=== PATIENT | male | born 1980 | race African-American/Black ===

== ENCOUNTER 2016-07-21 04:26 | Emergency (ER) | payer OTHER ==
[2016-07-21] MEDS ORDERED: CEFTRIAXONE INJ 250 MG VIAL IM ONE (05:37)
[2016-07-21] MEDS ORDERED: AZITHROMYCIN 250 MG TABLET PO ONE (05:37)
[2016-07-21] MEDS ORDERED: LIDOCAINE 1% INJ-PF (10 MG/ML) 30 ML SDV INFIL ONE (05:37)
--- NOTE | 2016-07-21 05:41 | ER Document Report ---
[id number] PAIN Notes: Patient is a 35-year-old male presents with complaint of penile discharges been worsening over last couple days. He was recent sexually active. He says he was wearing a condom but the condom broke. He is unsure if the sexual partner has no STD or not. He does not talk to or since. He denies any other complaints. No dysuria. No abdominal pain. No fevers. He does have a previous allergy to penicillin but says is just a rash. He has received an "antibiotic shot" in the past and did not have any reaction. He is unsure which antibiotic this was. TRAVEL OUTSIDE OF THE [place] IN LAST 30 DAYS: No - Related Data Allergies/Adverse Reactions: Penicillins Allergy (Unknown, Verified 07/21/16 04:36) Past Medical History - Social History Smoking Status: Unknown if Ever Smoked Chew tobacco use (# tins/day): No Frequency of alcohol use: None Drug Abuse: None Family History: Reviewed & Not Pertinent Patient has suicidal ideation: No Patient has homicidal ideation: No Pulmonary Medical History: Denies: Hx Asthma Renal/ Medical History: Denies: Hx Peritoneal Dialysis - Immunizations Hx Diphtheria, Pertussis, Tetanus Vaccination: Yes Review of Systems - Review of Systems Notes: My Normal Review Basic REVIEW OF SYSTEMS: CONSTITUTIONAL : Denies fever, chills, or sweats. Denies recent illness. GASTROINTESTINAL: Denies abdominal pain. Denies nausea, vomiting, or diarrhea. Denies constipation. Last BM: GENITOURINARY: Denies difficulty urinating, painful urination, burning, frequency, or blood in urine. Penile discharge MUSCULOSKELETAL: Denies neck or back pain or joint pain or swelling. SKIN: Denies rash or skin lesions. ALL OTHER SYSTEMS REVIEWED AND NEGATIVE. Physical Exam - Vital signs Vitals: Temp Pulse Resp BP Pulse Ox 97.4 F 60 16 113/71 100 07/21/16 04:30 07/21/16 04:30 07/21/16 04:30 07/21/16 04:30 07/21/16 04:30 - Notes Notes: General Appearance: Well nourished, alert, cooperative, no acute distress, no obvious discomfort. Well-appearing. Vitals: reviewed, See vital signs table. Genital: No redness or erythema to genitalia. No abnormal lesions. Patient does have a whitish discharge coming from the urethra. Skin: warm, dry, appropriate color, no rash Neuro: speech clear, oriented x 3, normal affect, responds appropriately to questions. Course - Vital Signs Vital signs: Temp Pulse Resp BP Pulse Ox 97.4 F 60 16 104/67 100 07/21/16 06:06 07/21/16 06:08 07/21/16 06:06 07/21/16 06:06 07/21/16 06:08 - Transfer of Care Notes: 07/21/16 06:23 Patient does have discharge concerning for sexually transmitted disease. Patient does want to go forth with treatment this time. He said he would contact his sexual partner to make sure that she is tested as well. I encouraged return to ER if has fevers, vomiting, or feels unwell. Patient was held for 20 minutes after receiving the Rocephin shots make sure he has no rash or itching. Patient agrees with plan will will be discharged home. Discharge - Discharge Clinical Impression: Penile discharge Condition: Good Disposition: HOME, SELF-CARE Additional Instructions: Please return to the ER immediately if you develop fevers, redness or swelling to your penis, or if you feel unwell. Please inform your sexual partner to be tested. Follow up with the health department for further STD testing such as HIV and Hepatitis. Forms: Return to Work
[2016-07-21 06:08] VITALS: BP 104/67
[2016-07-21 07:06] LABS: CHLAM PCR NOT DETECTED (NOT DETECT)
== END 2016-07-21 06:20 | disposition home or self-care (01) ==
LOC: ER 04:26
DX: R36.9 Urethral discharge, unspecified (principal)
CPT/HCPCS: 99284; 96372; 87491; 87591; J3490; J0696

== ENCOUNTER 2016-08-30 05:15 | Emergency (ER) | payer OTHER ==
--- NOTE | 2016-08-30 07:37 | ER Document Report ---
HPI - HPI Patient complains to provider of: vomiting and diarrhea Onset: Yesterday Onset/Duration: Gone Quality of pain: No pain Pain Level: Denies Context: Patient states that yesterday he had abdominal pain off and on with nausea, vomiting, and diarrhea. Patient states now that all of his symptoms have resolved but he does need a note for his job. Associated Symptoms: Diarrhea - Yesterday, Vomiting - Yesterday. denies: Fever Exacerbated by: Denies Relieved by: Denies Similar symptoms previously: Yes Recently seen / treated by doctor: No - ROS ROS below otherwise negative: Yes Systems Reviewed and Negative: Yes All other systems reviewed and negative - CONSTITUTIONAL Constitutional: DENIES: Fever - CARDIOVASCULAR Cardiovascular: DENIES: Chest pain - RESPIRATORY Respiratory: DENIES: Trouble Breathing, Coughing - GASTROINTESTINAL Gastrointestinal: REPORTS: Abdominal Pain - Yesterday, none today, Nausea - Yesterday, none today, Patient vomiting - Yesterday, none today, Diarrhea - Yesterday, none today - MUSCULOSKELETAL Musculoskeletal: DENIES: Extremity pain, Back Pain, Neck Pain - DERM Skin Color: Normal, [place] Skin Problems: None Past Medical History - General Information source: Patient - Social History Smoking Status: Never Smoker Frequency of alcohol use: None Drug Abuse: None 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 IN LAST 30 DAYS: No - HEENT HEENT: Atraumatic, Normal ENT Exam, Normocephalic - NECK Neck: Normal Inspection, Supple - RESPIRATORY Respiratory: Breath Sounds Normal, No Respiratory Distress O2 Sat by Pulse Oximetry: 100 - CARDIOVASCULAR Cardiovascular: Regular Rate, Regular Rhythm, No Murmur - GI/ABDOMEN Gastrointestinal: Abdomen Soft, Abdomen Non-Tender, No Organomegaly - BACK Back: Normal Inspection. negative: CVA Tenderness-Right, CVA Tenderness-Left - MUSCULOSKELETAL/EXTREMETIES Musculoskeletal/Extremeties: SHAYNA JENSEN - NEURO Level of Consciousness: Awake, Alert, Appropriate Motor/Sensory: No Motor Deficit, No Sensory Deficit - DERM Integumentary: Warm, Dry, No Rash Course - Vital Signs Vital signs: Temp Pulse Resp BP Pulse Ox 97.5 F 67 18 110/76 100 08/30/16 05:18 08/30/16 05:18 08/30/16 05:36 08/30/16 05:18 08/30/16 05:18 Discharge - Discharge Clinical Impression: Vomiting and diarrhea, Resolved abdominal pain Condition: Stable Disposition: HOME, SELF-CARE Additional Instructions: Return immediately for any new or worsening symptoms Followup with your primary care provider, call tomorrow to make a followup appointment VOMITING: Vomiting (or nausea without vomiting) can be caused by many other different problems. It can mean that something's wrong with the stomach, such as ulcers or inflammation or the intestinal tract, such as appendicitis. But it can also be a symptom of a problem that has nothing to do with the stomach or intestines. Vomiting is common with severe headaches, earaches, tonsillitis, and kidney infections, etc. We see it with pneumonia or heart attacks. Drugs can cause nausea and vomiting. Many abdominal problems cause vomiting; for example, gallstones, kidney stones, pancreatitis, and intestinal obstruction ( blocked bowels). In most cases, curing the vomiting depends on fixing the problem that caused it. For temporary relief, we may use an anti-nausea medicine. For home use, we can prescribe suppositories, chewable pills, pills that dissolve in the mouth, or liquid anti-nausea drugs. If the vomiting seems to be caused by a problem in the stomach, acid-suppressing drugs may be prescribed as well. It's important to avoid dehydration. Sip small amounts of clear liquids ( soft drinks, tea, broth, etc) . Try to take fluids frequently even if you are vomiting to prevent dehydration. Take increasing amounts of fluid and when liquids are being consumed successfully, advance to small amounts of bland food (toast, soups, mashed potatoes, etc.) until you are able to resume a regular diet. Avoid aspirin, tobacco, and alcohol. If the vomiting worsens, if the problem that's making you vomit worsens, or if there's evidence of bleeding in the stomach (such as black, tarry stool, or bloody or black vomit), you should return immediately. Also, return if abdominal pain worsens or becomes localized to one area or you develop high fever. Call your doctor if you aren't improved in 24 hours. DIARRHEA, NON-SPECIFIC: Diarrhea means frequent, watery stools. There are many causes. Any problem that keeps the intestinal tract from absorbing water from the stool can lead to diarrhea. A sudden new diarrhea problem is usually caused by a virus, food sensitivity, toxic bacteria, or drugs. In this case, we expect the problem to go away soon. Testing is done only if you seem seriously ill from the diarrhea. If you have chronic diarrhea, or diarrhea that keeps coming back, we need to find out why. Chronic diarrhea can be due to inflammation of the bowels such as Crohn's disease or ulcerative colitis, food sensitivity such as intolerance to lactose or wheat protein, irritable bowel syndrome, and other problems. If your diarrhea is a significant problem but it's not clear why you have it, we' ll refer you to a specialist for further testing. During an episode of diarrhea, drink small amounts (two to six ounces) of clear liquids (soft drinks, sport drinks, herb teas, broth, etc). Take fluids frequently to prevent dehydration. It's usually not a problem to take mild anti- diarrhea medication such as Kaopectate or Pepto-Bismol. As the diarrhea eases, advance to small amounts of bland food (mashed potato, toast) for 24 hours. Call the physician if blood appears in your vomit or stool, if vomiting lasts longer than 24 hours, if the abdominal pain worsens or becomes localized to one area, if you develop high fever, or if you become lightheaded and weak. VIRAL SYNDROME: The physician has diagnosed a viral infection. Viruses not only cause "colds," but can cause many different symptoms including generalized aching, fever, headache, cough, diarrhea, nausea, vomiting, and fatigue. The treatment, for the most part, is simply relief of symptoms. This means that antibiotics are usually not given. Rest, fluids, pain medications and, occasionally, medication for the specific symptoms that are most bothersome will be prescribed. Use good handwashing to avoid passing the virus to others. Shared toys should be cleaned with disinfectant. Clean the toilets, sinks, and counter surfaces in bathrooms. Launder clothing in hot water. Contact the physician if you develop any new or unusual symptoms such as severe headache, stiff neck, high fever, chest pain, productive cough, or shortness of breath. You should be rechecked if you don't see marked improvement within seven to 10 days. FOLLOW-UP CARE: If you have been referred to a physician for follow-up care, call the physician s office for an appointment as you were instructed or within the next two days. If you experience worsening or a significant change in your symptoms, notify the physician immediately or return to the Emergency Department at any time for re-evaluation. Forms: Return to Work Referrals: [facility] [Provider Group] - Follow up as needed [facility] [Provider Group] - Follow up as needed
[2016-08-30 07:57] VITALS: BP 116/73
== END 2016-08-30 07:50 | disposition home or self-care (01) ==
LOC: ER 05:15
DX: R11.10 Vomiting, unspecified (principal); R19.7 Diarrhea, unspecified; R10.9 Unspecified abdominal pain
CPT/HCPCS: 99283

== ENCOUNTER 2016-09-02 08:13 | Emergency (ER) | payer OTHER ==
[2016-09-02] MEDS ORDERED: ONDANSETRON 4 MG TAB.RAPDIS PO ONE (10:11)
[2016-09-02] MEDS ORDERED: IBUPROFEN 600 MG TABLET PO ONE (10:11)
--- NOTE | 2016-09-02 10:17 | ER Document Report ---
ED Flu Like - General Chief Complaint: Flu Symptoms Stated Complaint: FLU LIKE SYMPTOMS Mode of Arrival: Ambulatory Information source: Patient Notes: This is a 35-year-old male with no previous past medical history who presents with flulike symptoms for the past 4 days. He states that he has had cough, chills, subjective fevers, body aches, and nausea and vomiting. He states that he was seen here 4 days ago and diagnosed with a stomach virus. He last vomited this morning at work and was told to come to the ER for another evaluation. No diarrhea. He has not had Tylenol or Motrin today. Of note he states that his girlfriend has tested positive for influenza. TRAVEL OUTSIDE OF THE [place] IN LAST 30 DAYS: No - Related Data Allergies/Adverse Reactions: Penicillins Allergy (Unknown, Verified 09/02/16 08:20) Past Medical History - General Information source: Patient - Social History Smoking Status: Never Smoker Chew tobacco use (# tins/day): No Frequency of alcohol use: None Drug Abuse: None Family History: Reviewed & Not Pertinent Patient has suicidal ideation: No Patient has homicidal ideation: No - Medical History Medical History: Negative Pulmonary Medical History: Denies: Hx Asthma Renal/ Medical History: Denies: Hx Peritoneal Dialysis - Immunizations Hx Diphtheria, Pertussis, Tetanus Vaccination: Yes Review of Systems - Review of Systems Constitutional: See HPI, Chills. denies: Fever EENT: Nose congestion. denies: Ear pain, Sinus pressure, Throat pain, Difficulty swallowing Cardiovascular: No symptoms reported. denies: Chest pain Respiratory: Cough. denies: Short of breath, Sputum Gastrointestinal: See HPI, Nausea, Vomiting. denies: Abdomen distended, Abdominal pain, Diarrhea, Constipation Genitourinary: No symptoms reported Musculoskeletal: See HPI, Muscle pain Skin: No symptoms reported Hematologic/Lymphatic: No symptoms reported Neurological/Psychological: No symptoms reported Physical Exam - Vital signs Vitals: Temp Pulse Resp BP Pulse Ox 99.7 F 105 H 18 122/80 99 09/02/16 08:19 09/02/16 08:19 09/02/16 08:19 09/02/16 08:19 09/02/16 08:19 - Notes Notes: PHYSICAL EXAMINATION: GENERAL: Well-appearing, well-nourished and in no acute distress. Pleasant and conversant HEAD: Atraumatic, normocephalic. EYES: Pupils equal round and reactive to light, extraocular movements intact, sclera anicteric, conjunctiva are normal. ENT: nares patent, oropharynx clear without exudates. Moist mucous membranes. NECK: Normal range of motion, supple without lymphadenopathy LUNGS: Breath sounds clear to auscultation bilaterally and equal. No wheezes rales or rhonchi. HEART: Regular rate and rhythm without murmurs ABDOMEN: Soft, nontender, normoactive bowel sounds. No guarding, no rebound. No masses appreciated. EXTREMITIES: Normal range of motion, no edema NEUROLOGICAL: Cranial nerves grossly intact. Normal speech, normal gait. No gross focal motor or sensory deficits appreciated. PSYCH: Normal mood, normal affect. SKIN: Warm, Dry, normal turgor, no rashes or lesions noted. Course - Vital Signs Vital signs: Temp Pulse Resp BP Pulse Ox 99.7 F 105 H 18 122/80 99 09/02/16 08:19 09/02/16 08:19 09/02/16 08:19 09/02/16 08:19 09/02/16 08:19 Discharge - Discharge Clinical Impression: Flu-like symptoms Vomiting Qualifiers: Vomiting type: unspecified Vomiting Intractability: non-intractable Nausea presence: with nausea Qualified Code(s): R11.2 - Nausea with vomiting, unspecified Condition: Stable Disposition: HOME, SELF-CARE Additional Instructions: INFLUENZA: The physician feels that you have influenza -- the "flu". Influenza is an infection caused by a virus. Symptoms include generalized aching, fever, headache, dry cough, and fatigue. Some patients with the flu also have nausea, vomiting, and diarrhea. The fever and aches usually last two to four days, with the cough persisting another one to two weeks. Treatment of the flu, for the most part, is simply treatment of symptoms. Rest, drink plenty of fluids, and use acetaminophen for fever and aches. Do not take aspirin. There is an anti-viral medication, called Tamiflu, which may help in "type A" flu, but it's not helpful in every case of flu, and only works if started within the first 24 - 48 hours of the start of symptoms. The physician will determine whether this medication can help you. To prevent spread of the virus, use good handwashing. Shared toys should be cleaned with disinfectant. Clean the toilets, sinks, and counter surfaces in bathrooms. Launder clothing in hot water. What are conditions that should receive medical attention? The development of difficulty breathing. Lip color changes to blue or purple. Persistent vomiting and unable to keep liquids down with signs of dehydration such as: dizziness when standing, unable to urinate, or if child/ is crying no tears are noticed. Is less responsive than normal or becomes confused. How do I decrease the spread of flu in my home? Taking care of the sick patient at home: Keep the sick person in a room separate from the common areas of the house. Keep the "sickroom" door closed. If the person with the flu needs to leave the home, they should cover their nose/mouth when coughing or sneezing and wear a disposable (surgical) mask if available. These masks may be available at your local pharmacy, medical supply and hardware store. If the sick person is in common areas of the house, have them wear a surgical mask. If possible, have the sick person use a separate bathroom that should be cleaned daily with a household disinfectant. If you are the caregiver: Avoid being face to face with the sick adult person as much as possible. Try to stay at least 6 feet away and wear a disposable surgical mask when possible. When holding small children who are sick, place their chin on your shoulder so that they will not cough in your face. Wash your hands after you touch the sick person or handle their tissues and laundry. Wear a mask if you leave home, as you may be infected from taking care of someone and not know it yet. Watch yourself and others in the home for flu symptoms and contact your doctor if symptoms occur. NOTE: Antiviral medication used to reduce the symptoms of the flu works only if taken within 48 hours, and best within 24 hours of symptom onset. Household Cleaning, laundry and waste disposal: Tissues and other disposable items used by the sick person should be thrown away in the trash. Wash your hands after touching these used items. No special waste disposal is required. Keep surfaces (especially bedside tables, bathroom surfaces, and toys for children) clean by wiping them down with a safe household disinfectant according to the directions on the product label. Per Center for Disease Control advice, most people will not receive testing to confirm flu. Also based on the person's health history and onset of symptoms, not all patients will receive prescriptions for antiviral medications. If you have questions related to this, please ask your healthcare provider. For more information, you can call the Centers for Disease Control and Prevention (CDC) Hotline at 6-301-PSG-INFO This line is available in [place] and [place], 24 hours a day, 7 days a week. Or www.HelloSign or www.cdc.gov Flu-Like Illness Home Instructions: The influenza virus infection can cause a wide rage of symptoms, including: Fever, cough, sore throat, body aches, headaches, chills, fatigue, with some patients reporting diarrhea and vomiting Like seasonal influenza A, H1N1 ("swine flu")in humans can vary in severity from mild to severe Severe illness with pneumonia, respiratory failure and even is possible Certain groups might be more likely to develop a severe illness from H1N1 infection. Sometimes bacterial infections may occur at the same time as or after infection with influenza viruses and lead to pneumonias, ear infections, or sinus infections. How Flu Spreads The main way that influenza viruses spread is through respiratory droplets of coughs and sneezes. This can happen when someone with the infection coughs or sneezes and the particles fly through the air and land on other people and surfaces. If the person covers their mouth and nose with their hand but does not wash their hands immediately, then these germs are passed onto the next object that they touch. People with Influenza A or suspected H1N1 (swine flu) who are cared for at home should: Check with their doctor about any special care that they might need if they are or have a health condition such as diabetes, heart disease, asthma or emphysema. Also, limit caregiver to one (if possible). women or those with chronic health conditions should not take care of the flu patient unless necessary. Check with their doctor about whether or not medications are needed that may lessen the symptoms of the flu. Stay at home until 24 hours fever free without the use of fever reducing medication. Get plenty of rest and avoid other healthy people in your home. Drink plenty of clear liquids to keep from getting dehydrated. Take medications like Tylenol (Acetaminophen), Advil/Motrin/Nuprin ( Ibuprofen) or Aleve (Naproxen) for fevers and aches. All children under the age of 18 years of age should not take aspirin or products containing aspirin (e.g. Pepto Bismol), as this can cause a rare serious illness called Malka Syndrome. Over the counter medications for flu and colds may help, but it is very important to follow the package directions. Remember that the medicine may help the symptoms, but it will not help prevent others from getting sick if they are around you. Cover coughs and sneezes using your bent arm. Clean hands with soap and water or an alcohol-based hand rub often, especially after using tissues to cough or sneeze. Encourage hand washing frequently for all people living in the home! The sick person should not have visitors other than caregivers. Encourage concerned loved ones to call instead of visit. Avoid close contact with others-do not go to work or school while sick. USE OF ACETAMINOPHEN (Tylenol): Acetaminophen may be taken for pain relief or fever control. It's much safer than aspirin, offering a wider range of "safe" dosages. It is safe during . Some brand names are Tylenol, Panadol, Datril, Anacin 3, Tempra, and Liquiprin. Acetaminophen can be repeated every four hours. The following are maximum recommended dosages: WEIGHT Dose Drops Elixir Chewable( 80mg) (LBS.) drprs=droppers tsp=teaspoon 6 40 mg 0.4 ml (1/2) 6-11 80 mg 0.8 ml (full) tsp 1 tab 12-16 120 mg 1 1/2 drprs 3/4 tsp 1 1/2 tabs 17-23 160 mg 2 drprs 1 tsp 2 tabs 24-30 240 mg 3 drprs 1 1/2 tsp 3 tabs 30-35 320 mg 2 tsp 4 tabs 36-41 360 mg 2 1/4 tsp 4 1/2 tabs 42-47 400 mg 2 1/2 tsp 5 tabs 48-53 480 mg 3 tsp 6 tabs 54-59 520 mg 3 1/4 tsp 6 1/2 tabs 60-64 560 mg 3 1/2 tsp 7 tabs 65-70 600 mg 3 3/4 tsp 7 1/2 tabs 71-76 640 mg 4 tsp 8 tabs 77-82 720 mg 4 1/2 tsp 9 tabs 83-88 800 mg 5 tsp 10 tabs >89 pounds or adults 650 mg to 900 mg Acetaminophen can be repeated every four hours. Maximum dose not to exceed 4000 mg a day. These maximum recommended dosages are slightly higher than the dosages written on the product container, but these dosages are very safe and below the toxic dosage for acetaminophen. ORAL NARCOTIC MEDICATION: You have been given a prescription for pain control. This medication is a narcotic. It's best taken with food, as nausea can result if taken on an empty stomach. Don't operate machinery or drive within six hours of taking this medication. Do not combine this medicine with alcohol, or with any medication which can cause sedation (such as cold tablets or sleeping pills) unless you get permission from the physician. Narcotics tend to cause constipation. If possible, drink plenty of fluids and eat a diet high in fiber and fruits. Please be aware that prescription narcotics also have the potential for abuse. People become addicted to these medications because of the general sense of wellbeing that they induce. This feeling along with a significant reduction in tension, anxiety, and aggression provides a stimulating seductive quality to these drugs. Once your pain is under control, we encourage you to discard your unused narcotics. FOLLOW-UP CARE: If you have been referred to a physician for follow-up care, call the physician s office for an appointment as you were instructed or within the next two days. If you experience worsening or a significant change in your symptoms, notify the physician immediately or return to the Emergency Department at any time for re-evaluation. Prescriptions: Ibuprofen [Motrin 600 mg Tablet] 600 mg PO TID PRN #30 tablet PRN Reason: Promethazine HCl [Phenergan 25 mg Tablet] 1 tab PO Q6H PRN #10 tablet PRN Reason: Forms: Return to Work
[2016-09-02 10:34] VITALS: BP 119/81
== END 2016-09-02 10:25 | disposition home or self-care (01) ==
LOC: ER 08:13
DX: R11.2 Nausea with vomiting, unspecified (principal); R05 Cough; R50.9 Fever, unspecified; R52 Pain, unspecified
CPT/HCPCS: 99283; 87804; S0119

== ENCOUNTER 2016-09-24 08:34 | Emergency (ER) | payer OTHER ==
[2016-09-24 08:40] VITALS: BP 113/60
--- NOTE | 2016-09-24 08:44 | ER Document Report ---
HPI - HPI Patient complains to provider of: back pain Onset: Yesterday Onset/Duration: Sudden Quality of pain: Achy Pain Level: 2 Context: Patient presents to the ED with c/o left upper back pain that started yesterday. He reports pain when lifting his left arm. He reports he reports that the medical and thinks he Superman. He carries heavy things with his left arm. He denies trauma. Denies other symptoms such as fever vomiting diarrhea. Reports no past medical history of injury to that area. Associated Symptoms: None Exacerbated by: Movement Relieved by: Denies Similar symptoms previously: No Recently seen / treated by doctor: No - DERM Skin Color: Normal Past Medical History - General Information source: Patient - Social History Smoking Status: Current Every Day Smoker Cigarette use (# per day): Yes Chew tobacco use (# tins/day): No Frequency of alcohol use: None Drug Abuse: None Occupation: [employer] Family History: Reviewed & Not Pertinent Patient has suicidal ideation: No Patient has homicidal ideation: No - Medical History Medical History: Negative Pulmonary Medical History: Denies: Hx Asthma Renal/ Medical History: Denies: Hx Peritoneal Dialysis Surgical Hx: Negative - Immunizations Hx Diphtheria, Pertussis, Tetanus Vaccination: Yes Vertical Provider Document - CONSTITUTIONAL Agree With Documented VS: Yes Exam Limitations: No Limitations General Appearance: WD/WN, No Apparent Distress - INFECTION CONTROL TRAVEL OUTSIDE OF THE [place] IN LAST 30 DAYS: No - HEENT HEENT: Atraumatic, Normocephalic. negative: Conjuctival Injection - NECK Neck: Normal Inspection, Supple. negative: Lymphadenopathy-Left, Lymphadenopathy-Right - RESPIRATORY Respiratory: Breath Sounds Normal, No Respiratory Distress, Chest Non-Tender O2 Sat by Pulse Oximetry: 99 - CARDIOVASCULAR Cardiovascular: Regular Rate, Regular Rhythm - GI/ABDOMEN Gastrointestinal: Abdomen Soft, Abdomen Non-Tender - BACK Back: Normal Inspection - c/o left upper trapezius pain, no obvious deformity, no erythema/swelling/warmth, c/o pain to the area when lifting his left arm above his head - MUSCULOSKELETAL/EXTREMETIES Musculoskeletal/Extremeties: MAEW, FROM, Non-Tender - NEURO Level of Consciousness: Awake, Alert, Appropriate Motor/Sensory: No Motor Deficit - DERM Integumentary: Warm, Dry Adult Front & Back Diagram: 1 - c/o ttp, increased pain with movement of left arm above his head Course - Re-evaluation Re-evalutation: 09/24/16 pt instructed on ibuprofen, stretch, no lifting heavy items and fu with pcp for recheck next week, he verbalized understanding to all instructions - Vital Signs Vital signs: Temp Pulse Resp BP Pulse Ox 97.4 F 54 L 16 113/60 99 09/24/16 08:37 09/24/16 08:37 09/24/16 08:37 09/24/16 08:37 09/24/16 08:37 Discharge - Discharge Clinical Impression: Strain of left trapezius muscle Qualifiers: Encounter type: initial encounter Qualified Code(s): S46.812A - Strain of other muscles, fascia and tendons at shoulder and upper arm level, left arm, initial encounter Condition: Stable Disposition: HOME, SELF-CARE Instructions: Ice Packs ([facility]), Warm Packs ([facility]), Use of Asev-Apm-Dbbsxoe Ibuprofen ([facility]), Muscle Strain ([facility]) Additional Instructions: *You have been evaluated for upper back, trapezius pain *Take ibuprofen as indicated *ICE packs, heat packs as indicated *Follow up with a primary care provider within one week *Return to ED for worsening condition, changes, needs Forms: Return to Work
[2016-09-24] MEDS ORDERED: IBUPROFEN 800 MG TABLET PO ONE (09:06)
== END 2016-09-24 09:18 | disposition home or self-care (01) ==
LOC: ER 08:34
DX: S46.812A Strain of other muscles, fascia and tendons at shoulder and upper arm level, left arm, initial encounter (principal); M54.9 Dorsalgia, unspecified; F17.210 Nicotine dependence, cigarettes, uncomplicated; X58.XXXA Exposure to other specified factors, initial encounter
CPT/HCPCS: 99283

== ENCOUNTER 2016-11-15 08:11 | Emergency (ER) | payer OTHER ==
--- NOTE | 2016-11-15 09:08 | ER Document Report ---
ED GI/ - General Mode of Arrival: Ambulatory Information source: Patient TRAVEL OUTSIDE OF THE [place] IN LAST 30 DAYS: No <NESTOR MILES - Last Filed: 11/15/16 17:45> <BERT JONES - Last Filed: 11/22/16 03:44> - General Chief Complaint: Abdominal Pain Stated Complaint: STOMACH PAIN Time Seen by Provider: 11/15/16 09:06 Notes: Patient is a 35-year-old -[place]og[place] male who presents to the ER today for nausea, vomiting that began last night. Patient has vomited twice. Patient states he is having abdominal pain, all over his abdomen that started after the vomiting. He denies any fever, chills, diarrhea. He states the abdominal pain is actually resolved at this time. (NESTOR MLIES) - Related Data Allergies/Adverse Reactions: Penicillins Allergy (Unknown, Verified 11/15/16 08:55) Past Medical History - General Information source: Patient - Social History Smoking Status: Never Smoker Frequency of alcohol use: None Drug Abuse: None Family History: Reviewed & Not Pertinent Patient has suicidal ideation: No Patient has homicidal ideation: No Pulmonary Medical History: Denies: Hx Asthma Renal/ Medical History: Denies: Hx Peritoneal Dialysis - Immunizations Hx Diphtheria, Pertussis, Tetanus Vaccination: Yes <NESTOR MILES - Last Filed: 11/15/16 17:45> Review of Systems - Review of Systems Constitutional: No symptoms reported EENT: No symptoms reported Cardiovascular: No symptoms reported Respiratory: No symptoms reported Gastrointestinal: See HPI Genitourinary: No symptoms reported Male Genitourinary: No symptoms reported Musculoskeletal: No symptoms reported Skin: No symptoms reported Hematologic/Lymphatic: No symptoms reported Neurological/Psychological: No symptoms reported <NESTOR MILES - Last Filed: 11/15/16 17:45> Physical Exam <NESTOR MILES - Last Filed: 11/15/16 17:45> <BERT JONES - Last Filed: 11/22/16 03:44> - Vital signs Vitals: Pulse Resp BP Pulse Ox 55 L 16 108/60 98 11/15/16 08:30 11/15/16 08:30 11/15/16 08:30 11/15/16 08:30 - Notes Notes: PHYSICAL EXAMINATION: GENERAL: Well-appearing and in no acute distress. HEAD: Atraumatic, normocephalic. EYES: Pupils equal round and reactive to light, extraocular movements intact, sclera anicteric, conjunctiva are normal. NECK: Normal range of motion, supple without lymphadenopathy LUNGS: CTAB and equal. No wheezes rales or rhonchi. HEART: Regular rate and rhythm without murmurs ABDOMEN: Soft, no tenderness. No guarding, no rebound BACK: no vertebral tenderness, normal ROM GI/: no CVA tenderness EXTREMITIES: Normal range of motion, no pitting edema. No cyanosis. NEUROLOGICAL: Cranial nerves grossly intact. Normal sensory/motor exams. PSYCH: Normal mood, normal affect. SKIN: Warm, Dry, normal turgor, no rashes or lesions noted (NESTOR MILES) Course - Laboratory Result Diagrams: 11/15/16 10:05 11/15/16 10:05 <NESTOR MILES - Last Filed: 11/15/16 17:45> - Laboratory Result Diagrams: 11/15/16 10:05 11/15/16 10:05 <BERT JONES - Last Filed: 11/22/16 03:44> - Re-evaluation Re-evalutation: 11/15/16 11:58 Patient has positive nitrites in his urine. I did order gonorrhea chlamydia test but patient does not want to wait on that. I will treat him here with azithromycin orally, patient declines Rocephin injection Or IV. I will treat him with Keflex at home. (NESTOR MILES) - Vital Signs Vital signs: Temp Pulse Resp BP Pulse Ox 97.4 F 56 L 16 115/70 99 11/15/16 12:13 11/15/16 12:13 11/15/16 12:13 11/15/16 12:13 11/15/16 12:13 - Laboratory Laboratory results interpreted by me: 11/15/16 11/15/16 08:55 10:05 Lipase 11.4 L Urine Nitrite POSITIVE H Discharge <NESTOR MILES - Last Filed: 11/15/16 17:45> <BERT JONES - Last Filed: 11/22/16 03:44> - Discharge Clinical Impression: UTI (urinary tract infection) Qualifiers: Urinary tract infection type: site unspecified Hematuria presence: without hematuria Qualified Code(s): N39.0 - Urinary tract infection, site not specified Nausea and vomiting Qualifiers: Vomiting type: unspecified Vomiting Intractability: non-intractable Qualified Code(s): R11.2 - Nausea with vomiting, unspecified Abdominal pain Qualifiers: Abdominal location: generalized Qualified Code(s): R10.84 - Generalized abdominal pain Condition: Stable Disposition: HOME, SELF-CARE Instructions: Cephalexin ([facility]), Urinary Tract Infection ([facility]) Additional Instructions: Return immediately for any new or worsening symptoms. Follow up with primary care provider, call tomorrow to make followup appointment. Prescriptions: Cephalexin Monohydrate [Keflex 500 mg Capsule] 500 mg PO Q6H 7 Days Ondansetron [Zofran Odt 4 mg Tablet] 1 - 2 tab PO Q4H PRN #15 tab.rapdis PRN Reason: For Nausea/Vomiting Forms: Return to Work
[2016-11-15] MEDS ORDERED: FENTANYL CITRATE INJ/PF 100 MCG/2 ML AMPUL ONE (09:23)
[2016-11-15] MEDS ORDERED: ONDANSETRON 4 MG TAB.RAPDIS PO ONE (09:37)
[2016-11-15 10:21] LABS: ABSOLUTE EOSINOPHILS # (AUTO) 0.1 10^3/uL (0.0-0.6); ABSOLUTE LYMPHOCYTES (AUTO) 1.3 10^3/uL (0.5-4.7); ABSOLUTE MONOCYTES (AUTO) 0.3 10^3/uL (0.1-1.4); ABSOLUTE NEUT (AUTO) 3.1 10^3/uL (1.7-8.2); BASOPHILS % (AUTO) 0.9 % (0-2); EOSINOPHILS % (AUTO) 1.1 % (0-6); HEMATOCRIT 43.6 % (37.9-51.0); HEMOGLOBIN 14.3 g/dL (13.5-17.0); HGB HCT DIFFERENCE -0.7; LYMPHOCYTES % (AUTO) 27.7 % (13-45); MEAN CORPUSCULAR HEMOGLOBIN 31.9 pg (27.0-33.4); MEAN CORPUSCULAR HGB CONC 32.8 g/dL (32.0-36.0); MEAN CORPUSCULAR VOLUME 97 fl (80-97); MONOCYTES % (AUTO) 6.8 % (3-13); RED BLOOD COUNT 4.49 10^6/uL (4.35-5.55); RED CELL DISTRIBUTION WIDTH 13.3 % (11.5-14.0); SEGMENTED NEUTROPHILS % (AUTO) 63.5 % (42-78); WHITE BLOOD COUNT 4.9 10^3/uL (4.0-10.5)
[2016-11-15 10:41] LABS: ALANINE AMINOTRANSFERASE 32 U/L (21-72); ALBUMIN 4.3 g/dL (3.5-5.0); ALKALINE PHOSPHATASE 59 U/L (38-126); ANION GAP 10 (5-19); ASPARTATE AMINO TRANSFERASE 28 U/L (17-59); BILIRUBIN,DIRECT 0.2 mg/dL (0.0-0.4); BILIRUBIN,TOTAL 0.6 mg/dL (0.2-1.3); BLOOD UREA NITROGEN 14 mg/dL (7-20); CALCIUM 9.7 mg/dL (8.4-10.2); CARBON DIOXIDE 28 mmol/L (22-30); CHLORIDE 104 mmol/L (98-107); CREATININE RESULT 0.96 mg/dL (0.52-1.25); GLUCOSE 84 mg/dL (75-110); LIPASE 11.4 U/L (23-300); POTASSIUM 4.3 mmol/L (3.6-5.0); SODIUM 142.1 mmol/L (137-145); TOTAL PROTEIN 7.7 g/dL (6.3-8.2)
[2016-11-15 10:54] LABS: APPEARANCE,URINE TURBID; BILIRUBIN,URINE NEGATIVE (NEGATIVE); GLUCOSE, URINE NEGATIVE (NEGATIVE); KETONES,URINE NEGATIVE (NEGATIVE); LEUKOCYTE ESTERASE,URINE NEGATIVE (NEGATIVE); NITRITE,URINE POSITIVE (NEGATIVE); PROTEIN,URINE NEGATIVE (NEGATIVE); URINE SPECIFIC GRAVITY 1.019; UROBILINOGEN,URINE NEGATIVE mg/dL (<2.0)
[2016-11-15 11:09] LABS: RBC,URINE 0-1 /HPF; WBC,URINE 0-1 /HPF
[2016-11-15 11:10] LABS: BACTERIA,URINE 1+ /HPF
[2016-11-15 12:01] LABS: CHLAM PCR NOT DETECTED (NOT DETECT)
[2016-11-15] MEDS ORDERED: ONDANSETRON ODT 4 MG TAB (6 TAB/DSPK) PO PRN (12:01)
[2016-11-15] MEDS ORDERED: AZITHROMYCIN 250 MG TABLET PO ONE (12:01)
[2016-11-15 12:19] VITALS: BP 115/70
== END 2016-11-15 12:24 | disposition home or self-care (01) ==
LOC: ER 08:11
DX: N39.0 Urinary tract infection, site not specified (principal); R11.2 Nausea with vomiting, unspecified; R10.84 Generalized abdominal pain
CPT/HCPCS: 99284; 36415; 83690; 85025; 80053; 81001; 87491; 87591; S0119

== ENCOUNTER 2016-11-28 20:47 | Emergency (ER) | payer OTHER | END 2016-11-28 22:03 | disposition left against medical advice (07) | LOC: ER 20:47 | DX: Z53.9 Procedure and treatment not carried out, unspecified reason (principal); R39.198 Other difficulties with micturition ==

== ENCOUNTER 2016-12-29 14:46 | Emergency (ER) | payer OTHER ==
[2016-12-29 15:42] LABS: ABSOLUTE EOSINOPHILS # (AUTO) 0.1 10^3/uL (0.0-0.6); ABSOLUTE LYMPHOCYTES (AUTO) 1.5 10^3/uL (0.5-4.7); ABSOLUTE MONOCYTES (AUTO) 0.3 10^3/uL (0.1-1.4); ABSOLUTE NEUT (AUTO) 2.6 10^3/uL (1.7-8.2); BASOPHILS % (AUTO) 0.7 % (0-2); EOSINOPHILS % (AUTO) 1.5 % (0-6); HEMATOCRIT 43.5 % (37.9-51.0); HEMOGLOBIN 14.7 g/dL (13.5-17.0); HGB HCT DIFFERENCE 0.6; LYMPHOCYTES % (AUTO) 32.4 % (13-45); MEAN CORPUSCULAR HEMOGLOBIN 32.7 pg (27.0-33.4); MEAN CORPUSCULAR HGB CONC 33.7 g/dL (32.0-36.0); MEAN CORPUSCULAR VOLUME 97 fl (80-97); MONOCYTES % (AUTO) 7.6 % (3-13); RED BLOOD COUNT 4.49 10^6/uL (4.35-5.55); RED CELL DISTRIBUTION WIDTH 13.6 % (11.5-14.0); SEGMENTED NEUTROPHILS % (AUTO) 57.8 % (42-78); WHITE BLOOD COUNT 4.5 10^3/uL (4.0-10.5)
[2016-12-29 15:42] LABS: APPEARANCE,URINE SLIGHTLY-CLOUDY; BILIRUBIN,URINE NEGATIVE (NEGATIVE); GLUCOSE, URINE NEGATIVE (NEGATIVE); KETONES,URINE NEGATIVE (NEGATIVE); LEUKOCYTE ESTERASE,URINE NEGATIVE (NEGATIVE); NITRITE,URINE NEGATIVE (NEGATIVE); PROTEIN,URINE NEGATIVE (NEGATIVE); URINE SPECIFIC GRAVITY 1.029; UROBILINOGEN,URINE NEGATIVE mg/dL (<2.0)
[2016-12-29 16:04] LABS: ANION GAP 11 (5-19); BLOOD UREA NITROGEN 18 mg/dL (7-20); CALCIUM 9.8 mg/dL (8.4-10.2); CARBON DIOXIDE 28 mmol/L (22-30); CHLORIDE 101 mmol/L (98-107); CREATININE RESULT 1.11 mg/dL (0.52-1.25); GLUCOSE 81 mg/dL (75-110); POTASSIUM 4.5 mmol/L (3.6-5.0)
--- NOTE | 2016-12-29 16:20 | ER Document Report ---
ED General - General Chief Complaint: Urinary Frequency Stated Complaint: PAINFUL URINATION,ABDOMINAL PAIN Time Seen by Provider: 12/29/16 15:20 Notes: Patient states approximately 1 week ago he started having frequency of urination. He states he just has some pressure when he urinates but otherwise no pain. He denies back pain or abdominal pain. No nausea vomiting or diarrhea. No change of appetite. No fevers. No rashes. He denies any testicle pain.. At that time he was seen in the emergency department 1 week ago. He was checked for 60 transmitted diseases but all cultures to this point are negative. He was treated with Rocephin and Zithromax. He was also sent home with 1 week of Keflex and he states he took all doses. However he states his symptoms are no different. Nothing makes the pain better or worse except it is caused by urination. There is no radiation of the pain. It is mild to moderate. It is intermittent. TRAVEL OUTSIDE OF THE [place] IN LAST 30 DAYS: No - Related Data Allergies/Adverse Reactions: Penicillins Allergy (Unknown, Verified 12/29/16 14:57) Past Medical History - General Information source: Patient - Social History Smoking Status: Never Smoker Chew tobacco use (# tins/day): No Frequency of alcohol use: Occasional Drug Abuse: None Family History: Reviewed & Not Pertinent Patient has suicidal ideation: No Patient has homicidal ideation: No Pulmonary Medical History: Denies: Hx Asthma Renal/ Medical History: Denies: Hx Peritoneal Dialysis - Immunizations Hx Diphtheria, Pertussis, Tetanus Vaccination: Yes Review of Systems - Review of Systems Constitutional: denies: Fever, Malaise, Weakness Respiratory: denies: Cough, Short of breath Gastrointestinal: denies: Abdominal pain, Diarrhea, Vomiting -: Yes All other systems reviewed and negative Physical Exam - Vital signs Vitals: Temp Pulse Resp BP Pulse Ox 98.0 F 72 16 108/70 100 12/29/16 14:58 12/29/16 14:58 12/29/16 14:58 12/29/16 14:58 12/29/16 14:58 Interpretation: Normal - General General appearance: Appears well, Alert - HEENT Head: Normocephalic, Atraumatic Eyes: Normal Pupils: PERRL - Respiratory Respiratory status: No respiratory distress Chest status: Nontender Breath sounds: Normal Chest palpation: Normal - Cardiovascular Rhythm: Regular Heart sounds: Normal auscultation Murmur: No - Abdominal Inspection: Normal Distension: No distension Bowel sounds: Normal Tenderness: Nontender Organomegaly: No organomegaly - Genitourinary Inspection: Normal Tenderness: Nontender Scrotum: Normal - Back Back: Normal, Nontender - Extremities General upper extremity: Normal inspection, Nontender, Normal color, Normal ROM , Normal temperature General lower extremity: Normal inspection, Nontender, Normal color, Normal ROM , Normal temperature, Normal weight bearing. No: Jony's sign - Neurological Neuro grossly intact: Yes Cognition: Normal Orientation: AAOx4 [place] Coma Scale Eye Opening: Spontaneous [place] Coma Scale Verbal: Oriented [place] Coma Scale Motor: Obeys Commands [place] Coma Scale Total: 15 Speech: Normal Motor strength normal: LUE, RUE, LLE, RLE Sensory: Normal - Psychological Associated symptoms: Normal affect, Normal mood - Skin Skin Temperature: Warm Skin Moisture: Dry Skin Color: Normal Course - Vital Signs Vital signs: Temp Pulse Resp BP Pulse Ox 98.0 F 72 16 108/70 100 12/29/16 14:58 12/29/16 14:58 12/29/16 14:58 12/29/16 14:58 12/29/16 14:58 - Laboratory Result Diagrams: 12/29/16 15:30 12/29/16 15:30 Laboratory results interpreted by me: 12/29/16 15:20 Urine Ascorbic Acid 40 H Discharge - Discharge Clinical Impression: Dysuria Condition: Good Disposition: HOME, SELF-CARE Instructions: Urinary Tract Infection ([facility]) Additional Instructions: Follow-up with your primary care provider within 1 week. Prescriptions: Cefdinir 300 mg PO BID 7 Days Referrals: SAMUEL DESAI MD [[facility]] - Follow up as needed
[2016-12-29 17:09] VITALS: BP 114/78
== END 2016-12-29 16:47 | disposition home or self-care (01) ==
LOC: ER 14:46
DX: R30.0 Dysuria (principal); R35.0 Frequency of micturition; Z88.0 Allergy status to penicillin
CPT/HCPCS: 36415; 80048; 81001; 85025; 99283

== ENCOUNTER 2017-01-11 05:08 | Emergency (ER) | payer OTHER ==
[2017-01-11] MEDS ORDERED: KETOROLAC TROMETHAMINE 60 MG/2 ML SDV IM ONE (06:12)
--- NOTE | 2017-01-11 06:15 | ER Document Report ---
ED General - General Chief Complaint: Stiff Neck Stated Complaint: NECK PAIN Time Seen by Provider: 01/11/17 06:07 Mode of Arrival: Ambulatory Information source: Patient Notes: 36 yr old male presents with complaints of left neck stiffness tightness after waking up this morning. Pt notes limited range of motion. denies any trauma. TRAVEL OUTSIDE OF THE [place] IN LAST 30 DAYS: No - HPI Onset: Just prior to arrival Onset/Duration: Sudden Quality of pain: Achy Severity: Mild Pain Level: 1 Associated symptoms: Body/muscle aches Exacerbated by: Movement Relieved by: Denies Similar symptoms previously: No Recently seen / treated by doctor: No - Related Data Allergies/Adverse Reactions: Penicillins Allergy (Unknown, Verified 12/29/16 14:57) Past Medical History - Social History Smoking Status: Never Smoker Cigarette use (# per day): No Chew tobacco use (# tins/day): No Smoking Education Provided: No Family History: Reviewed & Not Pertinent Patient has suicidal ideation: No Patient has homicidal ideation: No Pulmonary Medical History: Denies: Hx Asthma Renal/ Medical History: Denies: Hx Peritoneal Dialysis - Immunizations Hx Diphtheria, Pertussis, Tetanus Vaccination: Yes Review of Systems - Review of Systems Notes: REVIEW OF SYSTEMS: Per parent CONSTITUTIONAL : Denies fever, chills, or sweats. Denies recent illness. EENT: Admits to neck stiffness CARDIOVASCULAR: Denies chest pain. Denies palpitations or racing or irregular heart beat. Denies ankle edema. RESPIRATORY: Denies cough, cold, or chest congestion. Denies shortness of breath, difficulty breathing, or wheezing. GASTROINTESTINAL: Denies abdominal pain or distention. Denies nausea, vomiting , or diarrhea. Denies blood in vomitus, stools, or per rectum. Denies black, tarry stools. Denies constipation. GENITOURINARY: Denies difficulty urinating, painful urination, burning, frequency, blood in urine, or discharge. MUSCULOSKELETAL: Denies back or neck pain or stiffness. Denies joint pain or swelling. SKIN: Denies rash, lesions or sores. HEMATOLOGIC : Denies easy bruising or bleeding. LYMPHATIC: Denies swollen, enlarged glands. NEUROLOGICAL: Denies confusion or altered mental status. Denies passing out or loss of consciousness. Denies dizziness or lightheadedness. Denies headache. Denies weakness or paralysis or loss of use of either side. Denies problems with gait or speech. Denies sensory loss, numbness, or tingling. Denies seizures. ALL OTHER SYSTEMS REVIEWED AND NEGATIVE. Dictation was performed using [employer] voice recognition software PHYSICAL EXAMINATION: GENERAL: Well-appearing, well-nourished child in no acute distress. HEAD: Atraumatic, normocephalic. EYES: Pupils equal round and reactive to light, extraocular movements intact, sclera anicteric, conjunctiva are normal. Tears noted ENT: Nares patent, oropharynx clear without exudates. Moist mucous membranes. NECK: Limited range of motion due to tightness of the left trapezius spasm LUNGS: Breath sounds clear to auscultation bilaterally and equal. No wheezes rales or rhonchi. No retractions HEART: Regular rate and rhythm without murmurs ABDOMEN: Soft, nontender, nondistended abdomen. No guarding, no rebound. No masses appreciated. Musculoskeletal: Normal range of motion, no pitting or edema. No cyanosis. NEUROLOGICAL: Cranial nerves grossly intact. Normal speech, normal gait exam for age. Normal sensory, motor, and reflex exams. PSYCH: Normal mood, normal affect. SKIN: Warm, Dry, normal turgor, no rashes or lesions noted Physical Exam - Vital signs Vitals: Temp Pulse Resp BP Pulse Ox 97.9 F 55 L 20 124/79 99 01/11/17 05:21 01/11/17 05:21 01/11/17 05:21 01/11/17 05:21 01/11/17 05:21 Course - Re-evaluation Re-evalutation: 01/11/17 06:32 There is no midline tenderness no traumatic events, I believe patient had torticollis. He will be treated with anti-inflammatories here and Valium for home as he is driving. Patient otherwise is stable for discharge After performing a Medical Screening Examination, I estimate there is LOW risk for INTRACRANIAL HEMORRHAGE, UNSTABLE SPINE FRACTURE, CENTRAL CORD SYNDROME, CAUDA EQUINA, THORACIC AORTIC DISSECTION, PNEUMOTHORAX, PERFORATED BOWEL, RUPTURED ABDOMINAL AORTIC ANEURYSM, ACUTE TENDON RUPTURE, COMPARTMENT SYNDROME, or OPEN FRACTURE, thus I consider the discharge disposition reasonable. Also, there is no evidence or peritonitis, sepsis, or toxicity. I have reevaluated this patient multiple times and no significant life threatening changes are noted. The patient and I have discussed the diagnosis and risks, and we agree with discharging home to follow-up with their primary doctor with the understanding that symptoms and presentations can change. We also discussed returning to the Emergency Department immediately if new or worsening symptoms occur. We have discussed the symptoms which are most concerning (e.g., bloody stool, fever, changing or worsening pain, vomiting) that necessitate immediate return. - Vital Signs Vital signs: Temp Pulse Resp BP Pulse Ox 97.9 F 55 L 20 124/79 99 01/11/17 05:21 01/11/17 05:21 01/11/17 05:21 01/11/17 05:21 01/11/17 05:21 Discharge - Discharge Clinical Impression: Torticollis, acute, Muscle spasm Condition: Stable Disposition: HOME, SELF-CARE Instructions: Torticollis ([facility]) Prescriptions: Diazepam [Valium 5 mg Tablet] 5 mg PO QIDP PRN #6 tablet PRN Reason: Forms: Return to Work
[2017-01-11 06:54] VITALS: BP 120/73
== END 2017-01-11 06:24 | disposition home or self-care (01) ==
LOC: ER 05:08
DX: M43.6 Torticollis (principal); M62.838 Other muscle spasm; Z88.0 Allergy status to penicillin
CPT/HCPCS: 99283; 96372; J1885

== ENCOUNTER 2017-02-17 04:52 | Emergency (ER) | payer OTHER ==
[2017-02-17] MEDS ORDERED: ONDANSETRON HCL INJ/PF 4 MG/2 ML SDV IV ONE (05:10)
[2017-02-17] MEDS ORDERED: NORMAL SALINE 1000 ML 1,000 ML IV ONE (05:10)
[2017-02-17] MEDS ORDERED: ONDANSETRON 4 MG TAB.RAPDIS PO ONE (05:25)
--- NOTE | 2017-02-17 05:26 | ER Document Report ---
ED Medical Screen (RME) - General Chief Complaint: Nausea/Vomiting/Diarrhea Stated Complaint: ABDOMINAL PAIN Time Seen by Provider: 02/17/17 05:21 Notes: 36-year-old male, chief complaint of 2 days of "a stomach virus". He states he hurts some in his mid abdomen, he states he vomited twice and had 3 episodes of diarrhea. No hematochezia or hematemesis. Denies fever. Reports possible sick contacts with his children. Denies daily medications, surgeries, or any medical history. TRAVEL OUTSIDE OF THE [place] IN LAST 30 DAYS: No - Related Data Allergies/Adverse Reactions: Penicillins Allergy (Unknown, Verified 12/29/16 14:57) Past Medical History Pulmonary Medical History: Denies: Hx Asthma Renal/ Medical History: Denies: Hx Peritoneal Dialysis - Immunizations Hx Diphtheria, Pertussis, Tetanus Vaccination: Yes Physical Exam - Vital signs Vitals: Temp Pulse Resp BP Pulse Ox 97.6 F 58 L 16 128/69 H 96 02/17/17 05:08 02/17/17 05:08 02/17/17 05:08 02/17/17 05:08 02/17/17 05:08 - Abdominal Inspection: Normal Tenderness: Tender - very mild generalized tenderness, nonspecific, no guarding. No: McBurney's point, Pierre's sign Course - Re-evaluation Re-evalutation: Very mild generalized abdominal tenderness, nonspecific, no guarding, well- appearing patient. Refuses an IV for IV fluids. - Vital Signs Vital signs: Temp Pulse Resp BP Pulse Ox 97.6 F 58 L 16 128/69 H 96 02/17/17 05:08 02/17/17 05:08 02/17/17 05:08 02/17/17 05:08 02/17/17 05:08
[2017-02-17 06:10] LABS: ALANINE AMINOTRANSFERASE 24 U/L (21-72); ALBUMIN 4.2 g/dL (3.5-5.0); ALKALINE PHOSPHATASE 67 U/L (38-126); ANION GAP 9 (5-19); ASPARTATE AMINO TRANSFERASE 27 U/L (17-59); BILIRUBIN,DIRECT 0.3 mg/dL (0.0-0.4); BILIRUBIN,TOTAL 0.6 mg/dL (0.2-1.3); BLOOD UREA NITROGEN 16 mg/dL (7-20); CALCIUM 9.8 mg/dL (8.4-10.2); CARBON DIOXIDE 27 mmol/L (22-30); CHLORIDE 105 mmol/L (98-107); CREATININE RESULT 0.88 mg/dL (0.52-1.25); GLUCOSE 98 mg/dL (75-110); POTASSIUM 4.2 mmol/L (3.6-5.0); SODIUM 141.2 mmol/L (137-145); TOTAL PROTEIN 7.3 g/dL (6.3-8.2)
[2017-02-17 06:12] LABS: ABSOLUTE EOSINOPHILS # (AUTO) 0.1 10^3/uL (0.0-0.6); ABSOLUTE LYMPHOCYTES (AUTO) 1.5 10^3/uL (0.5-4.7); ABSOLUTE MONOCYTES (AUTO) 0.3 10^3/uL (0.1-1.4); ABSOLUTE NEUT (AUTO) 1.3 10^3/uL (1.7-8.2); BASOPHILS % (AUTO) 0.5 % (0-2); EOSINOPHILS % (AUTO) 3.2 % (0-6); HEMATOCRIT 40.5 % (37.9-51.0); HEMOGLOBIN 14.1 g/dL (13.5-17.0); HGB HCT DIFFERENCE 1.8; LYMPHOCYTES % (AUTO) 45.6 % (13-45); MEAN CORPUSCULAR HEMOGLOBIN 33.5 pg (27.0-33.4); MEAN CORPUSCULAR HGB CONC 34.8 g/dL (32.0-36.0); MEAN CORPUSCULAR VOLUME 96 fl (80-97); MONOCYTES % (AUTO) 9.6 % (3-13); RED BLOOD COUNT 4.21 10^6/uL (4.35-5.55); RED CELL DISTRIBUTION WIDTH 13.5 % (11.5-14.0); SEGMENTED NEUTROPHILS % (AUTO) 41.1 % (42-78); WHITE BLOOD COUNT 3.2 10^3/uL (4.0-10.5)
--- NOTE | 2017-02-17 06:26 | ER Document Report ---
ED GI/ - General Mode of Arrival: Ambulatory Information source: Patient TRAVEL OUTSIDE OF THE [place] IN LAST 30 DAYS: No - HPI Patient complains to provider of: Abdominal pain - cramping, Diarrhea, Vomiting Onset: Yesterday - evening Quality of pain: Cramping Associated symptoms: Other - see above <GORDON WILKINS - Last Filed: 02/17/17 08:44> <CATY COLVIN - Last Filed: 02/17/17 15:50> - General Chief Complaint: Nausea/Vomiting/Diarrhea Stated Complaint: ABDOMINAL PAIN Time Seen by Provider: 02/17/17 05:21 Notes: Patient is a 36 year old male who presents to the ED with complaints of nausea and vomiting that started last night. Patient has associated diffuse abdominal cramping. Patient last vomited was this morning prior to coming to the ED. Patient has also had intermittent diarrhea. Patient states he was fine during the day yesterday. He is unsure if he picked up a stomach bug from one of his step children. Patient denies sob, throat pain, or headache. Patient has no pertinent medical history, is not on any daily medications and he does not smoke or drink. (GORDON WILKINS) - Related Data Allergies/Adverse Reactions: Penicillins Allergy (Unknown, Verified 12/29/16 14:57) Past Medical History - General Information source: Patient - Social History Smoking Status: Never Smoker Chew tobacco use (# tins/day): No Frequency of alcohol use: None Drug Abuse: None Family History: Reviewed & Not Pertinent Patient has suicidal ideation: No Patient has homicidal ideation: No Pulmonary Medical History: Denies: Hx Asthma Renal/ Medical History: Denies: Hx Peritoneal Dialysis - Immunizations Hx Diphtheria, Pertussis, Tetanus Vaccination: Yes <GORDON WILKINS - Last Filed: 02/17/17 08:44> Review of Systems - Review of Systems Constitutional: No symptoms reported EENT: See HPI. denies: Throat pain Cardiovascular: No symptoms reported Respiratory: See HPI. denies: Short of breath Gastrointestinal: See HPI, Abdominal pain, Diarrhea, Nausea, Vomiting Genitourinary: No symptoms reported Male Genitourinary: No symptoms reported Musculoskeletal: No symptoms reported Skin: No symptoms reported Hematologic/Lymphatic: No symptoms reported Neurological/Psychological: See HPI. denies: Headaches <GORDON WILKINS - Last Filed: 02/17/17 08:44> Physical Exam - General General appearance: Appears well, Alert In distress: None - HEENT Head: Normocephalic, Atraumatic Eyes: Normal Extraocular movements intact: Yes Pupils: PERRL - Respiratory Respiratory status: No respiratory distress Breath sounds: Normal - Cardiovascular Rhythm: Regular - rate of 72 Heart sounds: Normal auscultation Murmur: No - Abdominal Inspection: Normal Distension: No distension Tenderness: Nontender - Back Back: Normal - Extremities General upper extremity: Normal inspection, Normal ROM General lower extremity: Normal inspection, Normal ROM. No: Edema - Neurological Neuro grossly intact: Yes - Psychological Associated symptoms: Normal affect, Normal mood - Skin Skin Temperature: Warm Skin Moisture: Dry Skin Color: Normal <FRANKYGORDON - Last Filed: 02/17/17 08:44> - Vital signs Vitals: Temp Pulse Resp BP Pulse Ox 97.6 F 58 L 16 128/69 H 96 02/17/17 05:08 02/17/17 05:08 02/17/17 05:08 02/17/17 05:08 02/17/17 05:08 Course - Laboratory Result Diagrams: 02/17/17 05:45 02/17/17 05:45 <GORDON WILKINS - Last Filed: 02/17/17 08:44> - Laboratory Result Diagrams: 02/17/17 05:45 02/17/17 05:45 <CATY COLVIN - Last Filed: 02/17/17 15:50> - Re-evaluation Re-evalutation: 02/17/17 06:43 36-year-old male with nausea vomiting last night and 2-3 bowel movements through the night. The patient feels better now. His abdomen is benign. Blood tests are unremarkable. We will discharge him with a prescription for Zofran tablets to be used as needed. Patient has been instructed to return to the emergency department if he has further abdominal pain or other acute issues. (CATY COLVIN) - Vital Signs Vital signs: Temp Pulse Resp BP Pulse Ox 97.6 F 58 L 18 109/75 98 02/17/17 05:08 02/17/17 07:19 02/17/17 07:19 02/17/17 07:19 02/17/17 07:19 - Laboratory Laboratory results interpreted by me: 02/17/17 05:45 WBC 3.2 L RBC 4.21 L MCH 33.5 H Seg Neutrophils % 41.1 L Lymphocytes % 45.6 H Absolute Neutrophils 1.3 L Discharge <GORDON WILKINS - Last Filed: 02/17/17 08:44> <CATY COLVIN - Last Filed: 02/17/17 15:50> - Discharge Clinical Impression: Nausea vomiting and diarrhea Condition: Good Disposition: HOME, SELF-CARE Instructions: Antinausea Medication ([facility]), Vomiting ([facility]) Prescriptions: Ondansetron HCl [Zofran 4 mg Tablet] 1 - 2 tab PO Q4H PRN #10 tablet PRN Reason: Forms: Return to Work Referrals: [facility] [Provider Group] - Follow up as needed Scribe Attestation: 02/17/17 06:51 I personally performed the services described in the documentation, reviewed and edited the documentation which was dictated to the scribe in my presence, and it accurately records my words and actions. (CATY COLVIN) Scribe Documentation - Scribe Written by Brandonibe:: sona Lei, 02/17/2017, 0844 acting as scribe for :: Wilbert <GORDON WILKINS - Last Filed: 02/17/17 08:44>
[2017-02-17 07:20] VITALS: BP 109/75
== END 2017-02-17 07:19 | disposition home or self-care (01) ==
LOC: ER 04:52
DX: R11.2 Nausea with vomiting, unspecified (principal); R19.7 Diarrhea, unspecified; R10.84 Generalized abdominal pain; Z88.0 Allergy status to penicillin
CPT/HCPCS: 99284; 36415; 85025; 80053; S0119

== ENCOUNTER 2017-04-04 04:49 | Emergency (ER) | payer SELFPAY ==
[2017-04-04 04:59] VITALS: BP 104/55
[2017-04-04] MEDS ORDERED: DICYCLOMINE HCL 20 MG TABLET PO ONE (05:23)
--- NOTE | 2017-04-04 05:28 | ER Document Report ---
HPI - HPI Patient complains to provider of: diarrhea Pain Level: 2 Context: Patient is a 36-year-old male comes emergency department for chief complaint of several loose stools throughout the day today. He states he has occasional cramping in his belly as well. He denies current abdominal pain, vomiting, fever, flank pain. He denies any suspicious foods, recent travel. He is currently on an antibiotic, he states he was started on this by a neurologist, he states he thinks it is for his prostate but he is not sure. He has taken it for 2 weeks, he has 2 weeks remaining. He cannot tell me the name of the antibiotic. He denies any other daily medications or medical history. - DERM Skin Color: Normal Past Medical History - General Information source: Patient - Social History Smoking Status: Never Smoker Frequency of alcohol use: None Drug Abuse: None Lives with: Family Family History: Reviewed & Not Pertinent Patient has suicidal ideation: No Patient has homicidal ideation: No - Medical History Medical History: Negative Pulmonary Medical History: Denies: Hx Asthma Renal/ Medical History: Denies: Hx Peritoneal Dialysis Surgical Hx: Negative - Immunizations Hx Diphtheria, Pertussis, Tetanus Vaccination: Yes Vertical Provider Document - CONSTITUTIONAL General Appearance: WD/WN, No Apparent Distress - INFECTION CONTROL TRAVEL OUTSIDE OF THE [place] IN LAST 30 DAYS: No - HEENT HEENT: Atraumatic, Normocephalic - RESPIRATORY Respiratory: Breath Sounds Normal, No Respiratory Distress O2 Sat by Pulse Oximetry: 97 - CARDIOVASCULAR Cardiovascular: Regular Rate, Regular Rhythm - GI/ABDOMEN Gastrointestinal: Abdomen Soft, Abdomen Non-Tender, Normal Bowel Sounds. negative: Abdomen Tender, Abdominal Guarding, Abdominal Rebound - BACK Back: Normal Inspection - MUSCULOSKELETAL/EXTREMETIES Musculoskeletal/Extremeties: MAEW, FROM, Non-Tender - NEURO Level of Consciousness: Awake, Alert, Appropriate - DERM Integumentary: Warm, Dry, No Rash Course - Re-evaluation Re-evalutation: Patient has a soft non-tender abdomen, is very well appearing, unremarkable vital signs, mild complaints. Suspect patient is having diarrhea because of his antibiotic use for the past 2 weeks although I do not know which one it is. Patient has no concerning reported symptoms. Patient declines leaving a stool sample, he states he just needs something for the symptoms and he is ready to leave. He does agree to obtain a sample to be tested for C. difficile and have a culture performed, he was provided with the supplies to have this done along with a prescription for this. Treating symptoms. Advised probiotics. Discussed follow-up and return precautions. Patient states understanding and agreement. - Vital Signs Vital signs: Temp Pulse Resp BP Pulse Ox 98.0 F 61 18 104/55 L 97 04/04/17 04:54 04/04/17 04:54 04/04/17 04:54 04/04/17 04:54 04/04/17 04:54 Discharge - Discharge Clinical Impression: Diarrhea Qualifiers: Diarrhea type: unspecified type Qualified Code(s): R19.7 - Diarrhea, unspecified Condition: Stable Disposition: HOME, SELF-CARE Additional Instructions: The antibiotic you are taking is probably resulting in your symptoms of diarrhea. Recommendation is to begin taking [id number] probiotics, use the prescribed medication given as well if needed for cramping and diarrhea symptoms, also bring a stool sample to our lab if desired (ideally bring the sample within the first hour or so of obtaining it). Return to the ED for any concerning symptoms -vomiting, fever, abdominal pain, bloody bowel movements, or any other concerning symptoms. Prescriptions: Loperamide HCl [Imodium 2 mg Capsule] 2 mg PO Q4HP PRN #21 cap PRN Reason: Dicyclomine HCl [Bentyl 20 mg Tablet] 20 mg PO QID #20 tablet Forms: Follow-Up Laboratory Testing, Return to Work
== END 2017-04-04 05:37 | disposition home or self-care (01) ==
LOC: ER 04:49
DX: R19.7 Diarrhea, unspecified (principal); R10.9 Unspecified abdominal pain
CPT/HCPCS: 99283; J3490

== ENCOUNTER 2017-05-16 04:33 | Emergency (ER) | payer SELFPAY ==
[2017-05-16 04:37] VITALS: BP 105/55
--- NOTE | 2017-05-16 06:21 | ER Document Report ---
ED General - General Chief Complaint: Cough Stated Complaint: COLD SYMPTOMS Notes: 36-year-old male presents with 1 day of coughing and scratchy throat, onset this morning moderate. No meds at home. No shortness of breath or asthma. Non -smoker. TRAVEL OUTSIDE OF THE [place] IN LAST 30 DAYS: No - Related Data Allergies/Adverse Reactions: Penicillins Allergy (Unknown, Verified 04/04/17 04:54) Past Medical History - General Information source: Patient - Social History Smoking Status: Never Smoker Family History: Reviewed & Not Pertinent Patient has suicidal ideation: No Patient has homicidal ideation: No Pulmonary Medical History: Denies: Hx Asthma Renal/ Medical History: Denies: Hx Peritoneal Dialysis - Immunizations Hx Diphtheria, Pertussis, Tetanus Vaccination: Yes Review of Systems - Review of Systems Notes: REVIEW OF SYSTEMS GEN: Denies fever, chills, weight loss ENT: Denies nasal discharge, ear pain EYES: Denies blurry vision, eye pain, discharge CV: Denies chest pain, palpitations, edema RESP: cough, denies shortness of breath, wheezing GI: Denies abdominal pain, nausea, vomiting, diarrhea MSK: Denies joint pain/swelling, edema, SKIN: Denies rash, skin lesions LYMPH: Denies swollen glands/lymph nodes NEURO: Denies headache, focal weakness or numbness, dizziness PSYCH: Denies depression, suicidal or homicidal ideation PHYSICAL EXAMINATION General: No acute distress, well-nourished Head: Atraumatic, normocephalic ENT: Mouth normal, oropharynx moist, no exudates or tonsillar enlargement Eyes: Conjunctiva normal, pupils equal, lids normal Neck: No JVD, supple, no guarding CVS: Normal rate, regular rhythm, no murmurs Resp: No resp distress, equal and normal breath sounds bilaterally GI: Nondistended, soft, no tenderness to palpation, no rebound or guarding Ext: No deformities, no edema, normal range of motion in upper and lower ext Back: No CVA or midline TTP Skin: No rash, warm Lymphatic: No lymphadeopathy noted Neuro: Awake, alert. Face symmetric. GCS 15. Physical Exam - Vital signs Vitals: Temp Pulse Resp BP Pulse Ox 97.9 F 57 L 18 105/55 L 98 05/16/17 04:34 05/16/17 04:34 05/16/17 04:34 05/16/17 04:34 05/16/17 04:34 Course - Re-evaluation Re-evalutation: 05/16/17 06:30 Upper respiratory tract infection symptoms with no signs on exam of bacterial illness. Lungs are clear saturation is normal. No indication for workup today , doubt flu, doubt pneumonia. Discharge home. Requested off work which was granted. I have discussed with the patient there likely diagnosis, aftercare plan, follow-up plans and my usual and customary return precautions. They verbalized understanding of this. - Vital Signs Vital signs: Temp Pulse Resp BP Pulse Ox 97.9 F 57 L 18 105/55 L 98 05/16/17 04:34 05/16/17 04:34 05/16/17 04:34 05/16/17 04:34 05/16/17 04:34 Discharge - Discharge Clinical Impression: Cough in adult Condition: Good Disposition: HOME, SELF-CARE Instructions: Viral Syndrome ([facility]) Prescriptions: Benzonatate [Tessalon Perles 100 mg Capsule] 100 mg PO Q8HP PRN #40 capsule PRN Reason: Referrals: CORI ELIZABETH MD [Primary Care Provider] - Follow up as needed
== END 2017-05-16 06:34 | disposition home or self-care (01) ==
LOC: ER 04:33
DX: R05 Cough (principal); R09.89 Other specified symptoms and signs involving the circulatory and respiratory systems; Z88.0 Allergy status to penicillin
CPT/HCPCS: 99283

== ENCOUNTER 2017-06-20 20:47 | Emergency (ER) | payer SELFPAY ==
[2017-06-20 21:43] LABS: APPEARANCE,URINE CLEAR; BILIRUBIN,URINE NEGATIVE (NEGATIVE); GLUCOSE, URINE NEGATIVE (NEGATIVE); KETONES,URINE NEGATIVE (NEGATIVE); LEUKOCYTE ESTERASE,URINE NEGATIVE (NEGATIVE); NITRITE,URINE POSITIVE (NEGATIVE); PROTEIN,URINE NEGATIVE (NEGATIVE); URINE SPECIFIC GRAVITY 1.014
[2017-06-20 21:44] LABS: COLOR,URINE ORANGE
--- NOTE | 2017-06-20 22:35 | ER Document Report ---
HPI - HPI Patient complains to provider of: urinary frequency Onset: Other - several days Quality of pain: No pain Pain Level: 0 Context: 36 yo male c/o urinary frequency and bladder pressure. Patient was taking Azo [id number] which caused a positive nitrite on the exam. Urine culture was added. He had intercourse without a condom 1 week ago and wants to be treated for gonorrhea and chlamydia. No dysuria, discharge, testicular or penile pain or swelling. Associated Symptoms: None Exacerbated by: Denies Relieved by: Denies Similar symptoms previously: No Recently seen / treated by doctor: No - ROS ROS below otherwise negative: Yes Systems Reviewed and Negative: Yes All other systems reviewed and negative - CONSTITUTIONAL Constitutional: DENIES: Fever, Chills - EENT EENT: DENIES: Sore Throat, Ear Pain, Eye problems - NEURO Neurology: DENIES: Headache, Weakness, Vision blurred, Dizzinesss / Vertigo - CARDIOVASCULAR Cardiovascular: DENIES: Chest pain - RESPIRATORY Respiratory: DENIES: Trouble Breathing, Coughing - GASTROINTESTINAL Gastrointestinal: REPORTS: Abdominal Pain. DENIES: Black / Bloody Stools - URINARY Urinary: REPORTS: Urgency, Frequency. DENIES: Dysuria - MUSCULOSKELETAL Musculoskeletal: DENIES: Extremity pain Past Medical History - General Information source: Patient - Social History Smoking Status: Never Smoker Frequency of alcohol use: None Drug Abuse: None Lives with: Family Family History: Reviewed & Not Pertinent Patient has suicidal ideation: No Patient has homicidal ideation: No Pulmonary Medical History: Denies: Hx Asthma Renal/ Medical History: Denies: Hx Peritoneal Dialysis Surgical Hx: Negative - Immunizations Hx Diphtheria, Pertussis, Tetanus Vaccination: Yes Vertical Provider Document - CONSTITUTIONAL Agree With Documented VS: Yes Exam Limitations: No Limitations General Appearance: No Apparent Distress Notes: nurse standby for exam - INFECTION CONTROL TRAVEL OUTSIDE OF THE [place] IN LAST 30 DAYS: No - HEENT HEENT: Normocephalic - NECK Neck: Supple - RESPIRATORY O2 Sat by Pulse Oximetry: 99 - GI/ABDOMEN Gastrointestinal: Abdomen Soft, Abdomen Non-Tender, No Organomegaly, Normal Bowel Sounds - REPRODUCTIVE Male Genitalia: Normal Inspection Notes: non tender testicles, uncircumscised - MUSCULOSKELETAL/EXTREMETIES Musculoskeletal/Extremeties: SHAYNA JENSEN - NEURO Level of Consciousness: Awake, Alert Motor/Sensory: No Motor Deficit, No Sensory Deficit Course - Vital Signs Vital signs: Temp Pulse Resp BP Pulse Ox 97.8 F 66 20 132/71 H 99 06/20/17 20:57 06/20/17 20:57 06/20/17 20:57 06/20/17 20:57 06/20/17 20:57 - Laboratory Laboratory results interpreted by me: 06/20/17 20:56 Urine Nitrite POSITIVE H Urine Urobilinogen 4.0 H Discharge - Discharge Clinical Impression: Urinary frequency, Sensation of pressure in bladder area Condition: Good Disposition: HOME, SELF-CARE Instructions: Azithromycin ([facility]), Rocephin ([facility]) Additional Instructions: You are treated for possible STD with gonorrhea for possible gonnorrhea, and azithromycin for possible chlamydia Return to the emergency room if symptoms worsen Call me in 3 hours for the gonorrhea and Chlamydia test [phone]
[2017-06-20] MEDS ORDERED: LIDOCAINE 1% INJ-PF (10 MG/ML) 30 ML SDV INJ ONE (23:03)
[2017-06-20] MEDS ORDERED: ONDANSETRON 4 MG TAB.RAPDIS PO ONE (23:03)
[2017-06-20] MEDS ORDERED: CEFTRIAXONE INJ 250 MG VIAL IM ONE (23:03)
[2017-06-20] MEDS ORDERED: AZITHROMYCIN 250 MG TABLET PO ONE (23:03)
[2017-06-20 23:58] VITALS: BP 128/86
[2017-06-21 01:06] LABS: CHLAM PCR NOT DETECTED (NOT DETECT); GON PCR NOT DETECTED (NOT DETECT)
== END 2017-06-20 23:58 | disposition home or self-care (01) ==
LOC: ER 20:47
DX: R35.0 Frequency of micturition (principal); R10.9 Unspecified abdominal pain; Z20.2 Contact with and (suspected) exposure to infections with a predominantly sexual mode of transmission
CPT/HCPCS: 99283; 96372; 87086; 81001; 87491; 87591; S0119; J3490; J0696

== ENCOUNTER 2017-08-03 14:45 | Emergency (ER) | payer OTHER ==
[2017-08-03 14:51] VITALS: BP 102/66
--- NOTE | 2017-08-03 15:04 | ER Document Report ---
ED General - General Chief Complaint: Ear Pain Stated Complaint: EAR PAIN Time Seen by Provider: 08/03/17 15:03 Mode of Arrival: Ambulatory Information source: Patient Notes: 36-year-old male presents with complaints of right ear pain patient denies any fevers or chills patient is nondiabetic, he states it feels like its the outside of the ear bothering him. TRAVEL OUTSIDE OF THE [place] IN LAST 30 DAYS: No - HPI Onset: Yesterday Onset/Duration: Sudden Quality of pain: Achy Severity: Mild Pain Level: 1 Associated symptoms: Other Exacerbated by: Denies Relieved by: Denies Similar symptoms previously: Yes Recently seen / treated by doctor: No - Related Data Allergies/Adverse Reactions: Penicillins Allergy (Unknown, Verified 08/03/17 14:47) Past Medical History - Social History Smoking Status: Never Smoker Cigarette use (# per day): No Chew tobacco use (# tins/day): No Smoking Education Provided: No Frequency of alcohol use: None Drug Abuse: None Family History: Reviewed & Not Pertinent Patient has suicidal ideation: No Patient has homicidal ideation: No Pulmonary Medical History: Denies: Hx Asthma Renal/ Medical History: Denies: Hx Peritoneal Dialysis - Immunizations Hx Diphtheria, Pertussis, Tetanus Vaccination: Yes Review of Systems - Review of Systems Notes: REVIEW OF SYSTEMS: CONSTITUTIONAL : Denies fever, chills, or sweats. Denies recent illness. EENT: right ear pain CARDIOVASCULAR: Denies chest pain. Denies palpitations or racing or irregular heart beat. Denies ankle edema. RESPIRATORY: Denies cough, cold, or chest congestion. Denies shortness of breath, difficulty breathing, or wheezing. GASTROINTESTINAL: Denies abdominal pain or distention. Denies nausea, vomiting , or diarrhea. Denies blood in vomitus, stools, or per rectum. Denies black, tarry stools. Denies constipation. GENITOURINARY: Denies difficulty urinating, painful urination, burning, frequency, blood in urine, or discharge. MUSCULOSKELETAL: Denies back or neck pain or stiffness. Denies joint pain or swelling. SKIN: Denies rash, lesions or sores. HEMATOLOGIC : Denies easy bruising or bleeding. LYMPHATIC: Denies swollen, enlarged glands. NEUROLOGICAL: Denies confusion or altered mental status. Denies passing out or loss of consciousness. Denies dizziness or lightheadedness. Denies headache. Denies weakness or paralysis or loss of use of either side. Denies problems with gait or speech. Denies sensory loss, numbness, or tingling. Denies seizures. PSYCHIATRIC: Denies anxiety or stress. Denies depression, suicidal ideation, or homicidal ideation. ALL OTHER SYSTEMS REVIEWED AND NEGATIVE. Dictation was performed using [employer] voice recognition software PHYSICAL EXAMINATION: GENERAL: Well-appearing, well-nourished and in no acute distress. HEAD: Atraumatic, normocephalic. EYES: Pupils equal round extraocular movements intact, conjunctiva are normal. ENT: Nares patent NECK: Normal range of motion LUNGS: No respiratory distress Musculoskeletal: Normal range of motion NEUROLOGICAL: Normal speech, normal gait. PSYCH: Normal mood, normal affect. SKIN: pimple at the base of the ear canal Physical Exam - Vital signs Vitals: Temp Pulse Resp BP Pulse Ox 98.0 F 80 14 102/66 98 08/03/17 14:49 08/03/17 14:49 08/03/17 14:49 08/03/17 14:49 08/03/17 14:49 Course - Re-evaluation Re-evalutation: 08/03/17 15:18 At patient's permission the pimple was expressed using the cover for the otoscope, small amount of blood and pus was drained Patient given follow-up instructions as well as strict return precautions After performing a Medical Screening Examination, I estimate there is LOW risk for OPEN FRACTURE, COMPARTMENT SYNDROME, TENDON RUPTURE, ACUTE NEUROVASCULAR INJURY, or RETAINED FOREIGN BODY, thus I consider the discharge disposition reasonable. Also, there is no evidence or peritonitis, sepsis, or toxicity. I have reevaluated this patient multiple times and no significant life threatening changes are noted. The patient and I have discussed the diagnosis and risks, and we agree with discharging home with close follow-up with the understanding that symptoms and presentations can change. We also discussed returning to the Emergency Department immediately if new or worsening symptoms occur. We have discussed the symptoms which are most concerning (e.g., changing or worsening pain, fever, numbness, weakness, cool or painful digits) that necessitate immediate return. - Vital Signs Vital signs: Temp Pulse Resp BP Pulse Ox 98.0 F 80 14 102/66 98 08/03/17 14:49 08/03/17 14:49 08/03/17 14:49 08/03/17 14:49 08/03/17 14:49 Discharge - Discharge Clinical Impression: pimple in ear canal, drainage of pimple Condition: Stable Disposition: HOME, SELF-CARE Instructions: Abscess ([facility]) Referrals: [facility] [Primary Care Provider] - Follow up tomorrow
== END 2017-08-03 15:07 | disposition home or self-care (01) ==
LOC: ER 14:45
DX: H92.01 Otalgia, right ear (principal); R23.8 Other skin changes; Z88.0 Allergy status to penicillin
CPT/HCPCS: 99282

== ENCOUNTER 2017-09-11 12:54 | Emergency (ER) | payer SELFPAY ==
--- NOTE | 2017-09-11 14:22 | ER Document Report ---
ED General - General Chief Complaint: Urinary Problem Stated Complaint: ABDOMINAL PAIN, DARK URINE Time Seen by Provider: 09/11/17 14:08 TRAVEL OUTSIDE OF THE [place] IN LAST 30 DAYS: No - HPI Notes: 36-year-old male with a history of a single remote previous UTI presents with " I think I have a urinary tract infection". Patient describes a day or 2 gradual onset suprapubic pressure. No real frequency, urgency or dysuria. States she has had similar symptoms when he had a UTI before. Denies anal intercourse, denies any history of STI, urethral discharge. No abdominal pain, vomiting or diarrhea. No other modifying factors, no other associated symptoms , no other provocative or palliative factors. - Related Data Allergies/Adverse Reactions: Penicillins Allergy (Unknown, Verified 09/11/17 12:58) Past Medical History - Social History Smoking Status: Never Smoker Chew tobacco use (# tins/day): No Frequency of alcohol use: None Drug Abuse: None Family History: Reviewed & Not Pertinent Patient has suicidal ideation: No Patient has homicidal ideation: No Pulmonary Medical History: Denies: Hx Asthma Renal/ Medical History: Denies: Hx Peritoneal Dialysis Other: Previous urinary tract infection - Immunizations Hx Diphtheria, Pertussis, Tetanus Vaccination: Yes Review of Systems - Review of Systems Notes: ROS as in history of present illness otherwise denies any vomiting, nausea, chest pain, fever or other complaint Physical Exam - Vital signs Vitals: Temp Pulse Resp BP Pulse Ox 98.1 F 73 16 116/57 L 97 09/11/17 13:05 09/11/17 13:05 09/11/17 13:05 09/11/17 13:05 09/11/17 13:05 - Notes Notes: General: Well-developed HEENT: NC/AT, PERRL. No pharyngeal injection. Neck: Supple, no JVD. Chest:Clear with good air exchange. Cardiac: Regula rate and rhythm. no audible murmur. Abdomen:, Nondistended, no guarding rigidity or rebound. Nontender. Back: CVAT, unremarkable. Motor: Normal tone and power. Neurologic: Alert, nonfocal. Skin: Rashes petechiae or purpura. Extremeties: Well perfused, no significant edema. Course - Re-evaluation Re-evalutation: Well-appearing male with isolated urinary type symptoms. Low suspicion for STI , he declined testing. Will check urinalysis and reevaluate otherwise benign abdomen. Doubt intra-abdominal emergency. 09/11/17 15:05 Patient remained stable, has done well throughout his ED course. Urinalysis is unremarkable. Is advised to increase his fluid intake, discharged home with 1224 hour follow-up, return if worsening. - Vital Signs Vital signs: Temp Pulse Resp BP Pulse Ox 98.1 F 73 16 116/57 L 97 09/11/17 13:05 09/11/17 13:05 09/11/17 13:05 09/11/17 13:05 09/11/17 13:05 - Laboratory Laboratory results interpreted by me: Laboratory 09/11/17 13:40 Urine Color YELLOW Urine Appearance CLEAR Urine pH 5.0 Ur Specific [place] 1.025 Urine Protein NEGATIVE Urine Glucose (UA) NEGATIVE Urine Ketones NEGATIVE Urine Blood NEGATIVE Urine Nitrite NEGATIVE Urine Bilirubin NEGATIVE Urine Urobilinogen NEGATIVE Ur Leukocyte Esterase NEGATIVE Urine WBC (Auto) 0 Urine RBC (Auto) 0 Squamous Epi Cells Auto <1 Urine Mucus (Auto) OCC Urine Ascorbic Acid NEGATIVE Discharge - Discharge Clinical Impression: Abdominal pain Condition: Good Disposition: HOME, SELF-CARE Instructions: Abdominal Pain ([facility]) Referrals: [facility] [Primary Care Provider] - Follow up as needed
[2017-09-11 14:53] LABS: APPEARANCE,URINE CLEAR; BILIRUBIN,URINE NEGATIVE (NEGATIVE); COLOR,URINE YELLOW; GLUCOSE, URINE NEGATIVE (NEGATIVE); KETONES,URINE NEGATIVE (NEGATIVE); LEUKOCYTE ESTERASE,URINE NEGATIVE (NEGATIVE); NITRITE,URINE NEGATIVE (NEGATIVE); PROTEIN,URINE NEGATIVE (NEGATIVE); URINE SPECIFIC GRAVITY 1.025; UROBILINOGEN,URINE NEGATIVE mg/dL (<2.0)
[2017-09-11 15:21] VITALS: BP 116/74
== END 2017-09-11 15:21 | disposition home or self-care (01) ==
LOC: ER 12:54
DX: R10.9 Unspecified abdominal pain (principal); R39.89 Other symptoms and signs involving the genitourinary system; Z87.440 Personal history of urinary (tract) infections; Z88.0 Allergy status to penicillin
CPT/HCPCS: 81001; 99283

== ENCOUNTER 2017-10-03 14:45 | Emergency (ER) | payer SELFPAY ==
[2017-10-03 15:46] VITALS: BP 106/75
--- NOTE | 2017-10-03 15:49 | ER Document Report ---
ED General - General Chief Complaint: Abdominal Pain Stated Complaint: ABDOMINAL PAIN Time Seen by Provider: 10/03/17 15:25 Mode of Arrival: Ambulatory Information source: Patient Notes: 36-year-old male presents with complaints of right inguinal hernia was noted to say. Patient denies any fevers chills nausea vomiting or diarrhea. Patient notes normal bowel movement, he notes he was lifting heavy at work when this pop sensation occurred. Patient notes it is reducible TRAVEL OUTSIDE OF THE [place] IN LAST 30 DAYS: No - HPI Onset: Yesterday Onset/Duration: Sudden Quality of pain: No pain Severity: Mild Pain Level: Denies Associated symptoms: Other Exacerbated by: Other - Heavy lifting Relieved by: Other - Putting pressure on Similar symptoms previously: No Recently seen / treated by doctor: No - Related Data Allergies/Adverse Reactions: Penicillins Allergy (Unknown, Verified 10/03/17 14:46) Past Medical History - Social History Smoking Status: Never Smoker Cigarette use (# per day): No Chew tobacco use (# tins/day): No Smoking Education Provided: No Frequency of alcohol use: None Drug Abuse: None Family History: Reviewed & Not Pertinent Patient has suicidal ideation: No Patient has homicidal ideation: No Pulmonary Medical History: Denies: Hx Asthma Renal/ Medical History: Denies: Hx Peritoneal Dialysis - Immunizations Hx Diphtheria, Pertussis, Tetanus Vaccination: Yes Review of Systems - Review of Systems Notes: REVIEW OF SYSTEMS: CONSTITUTIONAL : Denies fever, chills, or sweats. Denies recent illness. EENT: Denies eye, ear, throat, or mouth pain or symptoms. Denies nasal or sinus congestion or discharge. Denies throat, tongue, or mouth swelling or difficulty swallowing. CARDIOVASCULAR: Denies chest pain. Denies palpitations or racing or irregular heart beat. Denies ankle edema. RESPIRATORY: Denies cough, cold, or chest congestion. Denies shortness of breath, difficulty breathing, or wheezing. GASTROINTESTINAL: Admits to right inguinal hernia GENITOURINARY: Denies difficulty urinating, painful urination, burning, frequency, blood in urine, or discharge. MUSCULOSKELETAL: Denies back or neck pain or stiffness. Denies joint pain or swelling. SKIN: Denies rash, lesions or sores. HEMATOLOGIC : Denies easy bruising or bleeding. LYMPHATIC: Denies swollen, enlarged glands. NEUROLOGICAL: Denies confusion or altered mental status. Denies passing out or loss of consciousness. Denies dizziness or lightheadedness. Denies headache. Denies weakness or paralysis or loss of use of either side. Denies problems with gait or speech. Denies sensory loss, numbness, or tingling. Denies seizures. PSYCHIATRIC: Denies anxiety or stress. Denies depression, suicidal ideation, or homicidal ideation. ALL OTHER SYSTEMS REVIEWED AND NEGATIVE. Dictation was performed using [employer] voice recognition software PHYSICAL EXAMINATION: GENERAL: Well-appearing, well-nourished and in no acute distress. HEAD: Atraumatic, normocephalic. EYES: Pupils equal round and reactive to light, extraocular movements intact, sclera anicteric, conjunctiva are normal. ENT: Nares patent, oropharynx clear without exudates. Moist mucous membranes. NECK: Normal range of motion, supple without lymphadenopathy LUNGS: Breath sounds clear to auscultation bilaterally and equal. No wheezes rales or rhonchi. HEART: Regular rate and rhythm without murmurs ABDOMEN: Soft, nontender, nondistended abdomen. No guarding, no rebound. Right inguinal hernia noted easily reducible Musculoskeletal: Normal range of motion, no pitting or edema. No cyanosis. NEUROLOGICAL: Cranial nerves grossly intact. Normal speech, normal gait. Normal sensory, motor exams PSYCH: Normal mood, normal affect. SKIN: Warm, Dry, normal turgor, no rashes or lesions noted. Physical Exam - Vital signs Vitals: Temp Pulse Resp BP Pulse Ox 97.1 F 66 16 111/75 100 10/03/17 14:51 10/03/17 14:51 10/03/17 14:51 10/03/17 14:51 10/03/17 14:51 Course - Re-evaluation Re-evalutation: 10/03/17 15:52 Given the patient's hernia is reducible, he looks well has no fevers is in no distress has normal bowel movements he will be given follow-up surgical list for further care otherwise he is stable for discharge After performing a Medical Screening Examination, I estimate there is LOW risk for ACUTE APPENDICITIS, BOWEL OBSTRUCTION, ACUTE CHOLECYSTITIS, PERFORATED DIVERTICULITIS, INCARCERATED HERNIA, PANCREATITIS, TESTICULAR TORSION or PERFORATED ULCER, thus I consider the discharge disposition reasonable. Also, there is no evidence or peritonitis, sepsis, or toxicity. I have reevaluated this patient multiple times and no significant life threatening changes are noted. The patient and I have discussed the diagnosis and risks, and we agree with discharging home with close follow-up with the understanding that symptoms and presentations can change. We also discussed returning to the Emergency Department immediately if new or worsening symptoms occur. We have discussed the symptoms which are most concerning (e.g., bloody stool, fever, changing or worsening pain, intractable vomiting - standard verbal up date) that necessitate immediate return. - Vital Signs Vital signs: Temp Pulse Resp BP Pulse Ox 98.0 F 65 16 106/75 100 10/03/17 15:45 10/03/17 15:45 10/03/17 15:45 10/03/17 15:45 10/03/17 15:45 Discharge - Discharge Clinical Impression: Hernia, inguinal, right Condition: Stable Disposition: HOME, SELF-CARE Instructions: Hernia ([facility]) Additional Instructions: Please limit lifting to nothing greater than 15 lbs a day Referrals: [facility] [Primary Care Provider] - Follow up as needed MIRIAM SULLIVAN MD [ACTIVE STAFF] - Follow up in 3-5 days
== END 2017-10-03 15:51 | disposition home or self-care (01) ==
LOC: ER 14:45
DX: K40.90 Unilateral inguinal hernia, without obstruction or gangrene, not specified as recurrent (principal); Z88.0 Allergy status to penicillin
CPT/HCPCS: 99283

== ENCOUNTER 2017-10-09 05:14 | Emergency (ER) | payer SELFPAY ==
--- NOTE | 2017-10-09 06:27 | ER Document Report ---
ED Flu Like - General Chief Complaint: Flu Symptoms Stated Complaint: FLU LIKE SYMPTOMS Notes: 36-year-old male presents with 2 day history of muscle aches, fever runny nose congestion nausea and diarrhea. The patient stated the stenosis is like the flu he has had in the past. He denies any neck stiffness. Denies headache. Denies blurred vision. Denies extremity numbness tingling or weakness. Denies chest pain or shortness of breath. He does endorse runny nose sore throat congestion. Several loose stools over the last couple days a lot of nausea. A lot of subjective fevers and muscle aches. He also has had chills. Denies any rashes. Denies chest pain denies shortness of breath. States he has had some abdominal cramping but no pain. States the cramping usually comes with the diarrhea. TRAVEL OUTSIDE OF THE [place] IN LAST 30 DAYS: No - Related Data Allergies/Adverse Reactions: Penicillins Allergy (Unknown, Verified 10/09/17 05:18) Past Medical History - Social History Smoking Status: Unknown if Ever Smoked Family History: Reviewed & Not Pertinent Patient has suicidal ideation: No Patient has homicidal ideation: No Pulmonary Medical History: Denies: Hx Asthma Renal/ Medical History: Denies: Hx Peritoneal Dialysis - Immunizations Hx Diphtheria, Pertussis, Tetanus Vaccination: Yes Review of Systems - Review of Systems Constitutional: Chills, Fever, Malaise. denies: Diaphoresis, Weakness, Weight gain, Weight loss EENT: Nose congestion, Nose discharge, Sinus pressure, Throat pain. denies: Eye discharge, Blurred vision, Ear pain, Sinus discharge, Difficulty swallowing , Throat swelling, Mouth pain, Mouth swelling, Dental problem, Vertigo Cardiovascular: denies: Chest pain, Palpitations Respiratory: Cough. denies: Hurts to breathe, Short of breath, Wheezing Gastrointestinal: Diarrhea, Nausea. denies: Abdominal pain, Vomiting, Constipation, Blood streaked bowels, Blood in vomit, Black stools, Rectal bleeding Genitourinary: denies: Burning, Dysuria, Discharge, Flank pain, Hematuria, Urgency, Retention Male Genitourinary: denies: Testicular pain Musculoskeletal: Muscle pain. denies: Joint pain, Muscle stiffness Skin: denies: No symptoms reported, Rash Neurological/Psychological: denies: Hallucinations, Sensory change, Loss of power, Paralysis, Headaches, Speech impairment, Numbness -: Yes All other systems reviewed and negative Physical Exam - Notes Notes: GENERAL_APPEARANCE: well_nourished, alert, cooperative VITALS: reviewed, see vital signs table. HEAD: no_swelling\tenderness on the head. EYES: PERRL, EOMI, conjunctiva_clear. NOSE: Clear_nasal_discharge. Turbinate discharge MOUTH: (-)decreased moisture. No drooling or stridor THROAT: Mild posterior throat_inflammation, no_airway_obstruction. no_ lymphadenopathy NECK: supple, no_neck_tenderness, (-)thyromegaly. No meningismus or nuchal rigidity BACK: no_back_tenderness. CHEST_WALL: no_chest_tenderness. LUNGS: no_wheezing, no_rales, no_rhonchi, (-)accessory muscle use, good air exchange bilateral. HEART: normal_rate, normal_rhythm, normal_S1, normal_S2, (-)S3, (-)S4, no_ murmur, no_rub. ABDOMEN: normal_BS, soft, no_abd_tenderness, (-)guarding, (-)rebound, no_ organomegaly, no_abd_masses. EXTREMITIES: good pulses in all_extremities, no_swelling\tenderness in the extremities, no_edema. SKIN: warm, dry, good_color, no_rash. No purpura or petechiae MENTAL_STATUS: speech_clear, oriented_X_3, normal_affect, responds_ appropriately to questions. NEURO: Neg Motor or Sensory Deficits on exam, CN 2-12 intact, DTR 2+ symmetric x 4, No cerbellar signs Course - Re-evaluation Re-evalutation: 10/09/17 06:26 36-year-old male presents with a flulike illness. I spoke with him about this. He did not have a flu shot this year. The patient currently looks well- hydrated nontoxic. No meningismus no nuchal rigidity. He is awake and conversant. He has no mental status changes. I spoke with him about empiric treatment for influenza. I offered swab and the patient stated that he really did not want to wait for the results to go home I will treat him empirically with some Tamiflu. I did explain to him that he is within the first 48 hours of this illness and this might be effective or may have minimal impact. He verbalized understanding. He will be discharged home I will give him 2 days off work. I explained to him the importance if he does not improve in 24-36 hours to return to the ER to allow us to reevaluate him. He verbalized understanding. If he gets worse return as soon as possible Discharge - Discharge Clinical Impression: Viral syndrome Condition: Good Disposition: HOME, SELF-CARE Instructions: Viral Syndrome ([facility]) Additional Instructions: If he do not improve in 24-36 hours return to the ER to be reevaluated if worse return as soon as possible otherwise follow-up with family doctor. Prescriptions: Ondansetron [Zofran Odt 4 mg Tablet] 1 - 2 tab PO Q4HP PRN #10 tab.rapdis PRN Reason: Benzonatate [Tessalon Perle 100 mg Capsule] 100 mg PO Q8HP PRN #40 cap PRN Reason: Oseltamivir Phosphate [Tamiflu 75 mg Capsule] 75 mg PO NOW #10 capsule Referrals: CORI ELIZABETH MD [Primary Care Provider] - Follow up as needed
[2017-10-09 06:38] VITALS: BP 101/78
== END 2017-10-09 06:38 | disposition home or self-care (01) ==
LOC: ER 05:14
DX: R50.9 Fever, unspecified (principal); B34.9 Viral infection, unspecified; M79.1 Myalgia; R11.0 Nausea; R19.7 Diarrhea, unspecified; Z88.0 Allergy status to penicillin
CPT/HCPCS: 99283

== ENCOUNTER 2017-10-25 05:06 | Emergency (ER) | payer SELFPAY ==
[2017-10-25] MEDS ORDERED: ONDANSETRON 4 MG TAB.RAPDIS PO ONE (05:37)
--- NOTE | 2017-10-25 05:38 | ER Document Report ---
ED Medical Screen (RME) - General Chief Complaint: Nausea/Vomiting/Diarrhea Stated Complaint: ABDOMINAL PAIN Notes: Patient reports nausea vomiting diarrhea 1 day. No fever. I have greeted and performed a rapid initial assessment of this patient. A comprehensive ED assessment and evaluation of the patient, analysis of test results and completion of the medical decision making process will be conducted by additional ED providers. TRAVEL OUTSIDE OF THE [place] IN LAST 30 DAYS: No - Related Data Allergies/Adverse Reactions: Penicillins Allergy (Unknown, Verified 10/09/17 05:18) Past Medical History Pulmonary Medical History: Denies: Hx Asthma Renal/ Medical History: Denies: Hx Peritoneal Dialysis - Immunizations Hx Diphtheria, Pertussis, Tetanus Vaccination: Yes Physical Exam - Vital signs Vitals: Temp Pulse Resp BP Pulse Ox 98.5 F 86 18 116/73 96 10/25/17 05:15 10/25/17 05:15 10/25/17 05:15 10/25/17 05:15 10/25/17 05:15 Course - Vital Signs Vital signs: Temp Pulse Resp BP Pulse Ox 98.5 F 86 18 116/73 96 10/25/17 05:15 10/25/17 05:15 10/25/17 05:15 10/25/17 05:15 10/25/17 05:15
[2017-10-25] MEDS ORDERED: FAMOTIDINE 20 MG TABLET PO ONE (06:39)
--- NOTE | 2017-10-25 06:42 | ER Document Report ---
ED GI/ - General Chief Complaint: Nausea/Vomiting/Diarrhea Stated Complaint: ABDOMINAL PAIN Time Seen by Provider: 10/25/17 05:38 Notes: 36-year-old male. Was seen a few days ago at urgent care after having a laceration to his finger. Was placed on some naproxen. States that he has been taking that but now has some upset stomach, vomiting, diarrhea. Also states that he has had a hernia in the right inguinal area that comes and goes. States that it does not hurt at this time. Does have some crampy abdominal pain diffusely. Denies any blood in stool. Denies any black tarry stools. He denies any blood in his vomit. TRAVEL OUTSIDE OF THE [place] IN LAST 30 DAYS: No - HPI Patient complains to provider of: Abdominal pain, Diarrhea, Vomiting Onset: Yesterday Timing/Duration: Gradual - Related Data Allergies/Adverse Reactions: Penicillins Allergy (Unknown, Verified 10/09/17 05:18) Past Medical History - General Information source: Patient - Social History Smoking Status: Never Smoker Cigarette use (# per day): No Chew tobacco use (# tins/day): No Frequency of alcohol use: Occasional Drug Abuse: None Lives with: Family Family History: Reviewed & Not Pertinent Patient has suicidal ideation: No Patient has homicidal ideation: No Pulmonary Medical History: Denies: Hx Asthma Renal/ Medical History: Denies: Hx Peritoneal Dialysis - Immunizations Hx Diphtheria, Pertussis, Tetanus Vaccination: Yes Review of Systems - Review of Systems Constitutional: No symptoms reported EENT: No symptoms reported Cardiovascular: No symptoms reported Respiratory: No symptoms reported Gastrointestinal: Abdominal pain, Diarrhea, Nausea, Vomiting Genitourinary: No symptoms reported Male Genitourinary: No symptoms reported Musculoskeletal: No symptoms reported Skin: No symptoms reported Hematologic/Lymphatic: No symptoms reported Neurological/Psychological: No symptoms reported Physical Exam - Vital signs Vitals: Temp Pulse Resp BP Pulse Ox 98.5 F 86 18 116/73 96 10/25/17 05:15 10/25/17 05:15 10/25/17 05:15 10/25/17 05:15 10/25/17 05:15 Interpretation: Normal - General General appearance: Appears well, Alert - HEENT Head: Normocephalic, Atraumatic Eyes: Normal Pupils: PERRL - Respiratory Respiratory status: No respiratory distress Chest status: Nontender Breath sounds: Normal Chest palpation: Normal - Cardiovascular Rhythm: Regular Heart sounds: Normal auscultation Murmur: No - Abdominal Inspection: Normal Distension: No distension Bowel sounds: Hyperactive Tenderness: Tender - mild, Organomegaly: No organomegaly - Genitourinary Inspection: Normal Tenderness: Nontender Scrotum: Normal Notes: No signs of incarcerated right inguinal hernia. - Back Back: Normal, Nontender - Extremities General upper extremity: Normal inspection, Nontender, Normal color, Normal ROM , Normal temperature General lower extremity: Normal inspection, Nontender, Normal color, Normal ROM , Normal temperature, Normal weight bearing. No: Jony's sign - Neurological Neuro grossly intact: Yes Cognition: Normal Orientation: AAOx4 [place] Coma Scale Eye Opening: Spontaneous [place] Coma Scale Verbal: Oriented [place] Coma Scale Motor: Obeys Commands [place] Coma Scale Total: 15 Speech: Normal Motor strength normal: LUE, RUE, LLE, RLE Sensory: Normal - Psychological Associated symptoms: Normal affect, Normal mood - Skin Skin Temperature: Warm Skin Moisture: Dry Skin Color: Normal Course - Re-evaluation Re-evalutation: 10/25/17 08:05 Patient but pressure was a little bit low but refused IV. States he does not like IVs. Offered him some fluids based on his nausea, vomiting and diarrhea and hypotension but patient refused. We have given him some Zofran and some Pepcid. Check labs. X-ray does not reveal any signs of bowel obstruction. There is no signs of incarcerated hernia. 10/25/17 08:06 Acute Abdomen Series 10/25/17 06:39 IMPRESSION: 1. No acute pulmonary process. Nonobstructive bowel gas pattern. 10/25/17 06:55 10/25/17 06:55 MCV 94 fl (80-97) 10/25/17 06:55 MCH 31.8 pg (27.0-33.4) 10/25/17 06:55 MCHC 34.0 g/dL (32.0-36.0) 10/25/17 06:55 RDW 13.4 % (11.5-14.0) 10/25/17 06:55 Seg Neutrophils % 70.3 % (42-78) 10/25/17 06:55 Lymphocytes % 17.4 % (13-45) 10/25/17 06:55 Monocytes % 10.0 % (3-13) 10/25/17 06:55 Eosinophils % 1.9 % (0-6) 10/25/17 06:55 Basophils % 0.4 % (0-2) 10/25/17 06:55 Absolute Neutrophils 2.8 10^3/uL (1.7-8.2) 10/25/17 06:55 Absolute Lymphocytes 0.7 10^3/uL (0.5-4.7) 10/25/17 06:55 Absolute Monocytes 0.4 10^3/uL (0.1-1.4) 10/25/17 06:55 Absolute Eosinophils 0.1 10^3/uL (0.0-0.6) 10/25/17 06:55 Absolute Basophils 0.0 10^3/uL (0.0-0.2) 10/25/17 06:55 Chloride 101 mmol/L (98-107) 10/25/17 06:55 Carbon Dioxide 30 mmol/L (22-30) 10/25/17 06:55 Anion Gap 10 (5-19) 10/25/17 06:55 Est GFR ( Amer) > 60 (>60) 10/25/17 06:55 Est GFR (Non-Af Amer) > 60 (>60) 10/25/17 06:55 Glucose 106 mg/dL (75-110) 10/25/17 06:55 Calcium 9.5 mg/dL (8.4-10.2) 10/25/17 06:55 Total Bilirubin 0.5 mg/dL (0.2-1.3) 10/25/17 06:55 AST 29 U/L (17-59) 10/25/17 06:55 ALT 47 U/L (21-72) 10/25/17 06:55 Alkaline Phosphatase 63 U/L (38-126) 10/25/17 06:55 Total Protein 7.9 g/dL (6.3-8.2) 10/25/17 06:55 Albumin 4.6 g/dL (3.5-5.0) 10/25/17 06:55 - Vital Signs Vital signs: Temp Pulse Resp BP Pulse Ox 98.5 F 86 18 116/73 96 10/25/17 05:15 10/25/17 05:15 10/25/17 05:15 10/25/17 05:15 10/25/17 05:15 - Laboratory Result Diagrams: 10/25/17 06:55 10/25/17 06:55 Laboratory results interpreted by me: 10/25/17 07:30 Urine Protein 30 H Urine Urobilinogen 4.0 H Ur Leukocyte Esterase TRACE H Urine Ascorbic Acid 40 H Discharge - Discharge Clinical Impression: Gastroenteritis Condition: Good Disposition: HOME, SELF-CARE Instructions: Antinausea Medication ([facility]), Diarrhea, Nonspecific ([facility]), Gastroenteritis (adult) ([facility]) Additional Instructions: Please stop taking the naproxen. This could be upsetting her stomach. Begin taking Zantac twice a day. Zofran as needed for nausea. Drink plenty of fluids. In the event you are unable to keep liquids down, feel weak or dehydrated he may require an IV. You have refusing IV today. Please note that we are still able to treat you if you come back. Symptoms get worse, develop blood in the vomit, dark black colored stools, bright red blood in the stool or worsening pain please return immediately. Prescriptions: Ondansetron [Zofran Odt 4 mg Tablet] 4 mg PO Q6H PRN 4 Days #10 tab.rapdis PRN Reason: Unresolved Nausea/Vomiting Ranitidine HCl [Zantac] 150 mg PO BID 7 Days #14 tablet Forms: Return to Work
--- NOTE | 2017-10-25 07:21 | RADIOLOGY REPORT (SQ) ---
EXAM DESCRIPTION: Acute abdominal series CLINICAL HISTORY: abd pain COMPARISON: None. FINDINGS: Single view of the chest with upright spine views of the abdomen. Cardiomediastinal silhouette has normal size and contour. No consolidation, pneumothorax, or pleural effusion. No dilated large or small bowel. No definite free intraperitoneal air. No definite abnormal calcifications. No organomegaly identified. No acute osseous abnormalities. Minimal degenerative scoliosis of the thoracic spine. Minimal levoconvex scoliosis of the lumbar spine IMPRESSION: 1. No acute pulmonary process. Nonobstructive bowel gas pattern.
[2017-10-25 07:29] LABS: ABSOLUTE EOSINOPHILS # (AUTO) 0.1 10^3/uL (0.0-0.6); ABSOLUTE LYMPHOCYTES (AUTO) 0.7 10^3/uL (0.5-4.7); ABSOLUTE MONOCYTES (AUTO) 0.4 10^3/uL (0.1-1.4); ABSOLUTE NEUT (AUTO) 2.8 10^3/uL (1.7-8.2); BASOPHILS % (AUTO) 0.4 % (0-2); EOSINOPHILS % (AUTO) 1.9 % (0-6); HEMATOCRIT 45.1 % (37.9-51.0); HEMOGLOBIN 15.3 g/dL (13.5-17.0); LYMPHOCYTES % (AUTO) 17.4 % (13-45); MEAN CORPUSCULAR HEMOGLOBIN 31.8 pg (27.0-33.4); MEAN CORPUSCULAR VOLUME 94 fl (80-97); PLATELET COUNT 220 10^3/uL (150-450); RED BLOOD COUNT 4.81 10^6/uL (4.35-5.55); RED CELL DISTRIBUTION WIDTH 13.4 % (11.5-14.0); SEGMENTED NEUTROPHILS % (AUTO) 70.3 % (42-78); TOTAL CELLS COUNTED % (AUTO) 100 %
[2017-10-25 07:30] LABS: ALBUMIN 4.6 g/dL (3.5-5.0); ASPARTATE AMINO TRANSFERASE 29 U/L (17-59); BLOOD UREA NITROGEN 12 mg/dL (7-20); CALCIUM 9.5 mg/dL (8.4-10.2); CARBON DIOXIDE 30 mmol/L (22-30); GLUCOSE 106 mg/dL (75-110); POTASSIUM 4.1 mmol/L (3.6-5.0); SODIUM 141.1 mmol/L (137-145); TOTAL PROTEIN 7.9 g/dL (6.3-8.2)
[2017-10-25 07:31] LABS: BILIRUBIN,DIRECT 0.2 mg/dL (0.0-0.4); BILIRUBIN,TOTAL 0.5 mg/dL (0.2-1.3); NEONATAL BILIRUBIN RESULT 0.3 mg/dL (0.1-1.1)
[2017-10-25 07:45] LABS: ALANINE AMINOTRANSFERASE 47 U/L (21-72); ALKALINE PHOSPHATASE 63 U/L (38-126); ANION GAP 10 (5-19); CHLORIDE 101 mmol/L (98-107)
[2017-10-25 08:04] LABS: APPEARANCE,URINE CLEAR; BILIRUBIN,URINE NEGATIVE (NEGATIVE); GLUCOSE, URINE NEGATIVE (NEGATIVE); KETONES,URINE NEGATIVE (NEGATIVE); LEUKOCYTE ESTERASE,URINE TRACE (NEGATIVE); NITRITE,URINE NEGATIVE (NEGATIVE); PROTEIN,URINE 30 mg/dL (NEGATIVE); URINE SPECIFIC GRAVITY 1.028
[2017-10-25 08:11] LABS: COLOR,URINE YELLOW
[2017-10-25 08:38] VITALS: BP 110/79
== END 2017-10-25 08:25 | disposition home or self-care (01) ==
LOC: ER 05:06
DX: K52.9 Noninfective gastroenteritis and colitis, unspecified (principal); R11.2 Nausea with vomiting, unspecified; R10.9 Unspecified abdominal pain; I95.9 Hypotension, unspecified
CPT/HCPCS: 99284; 36415; 85025; 80053; 81001; 74022; S0119

== ENCOUNTER 2017-11-28 19:24 | Emergency (ER) | payer SELFPAY ==
[2017-11-28] MEDS ORDERED: LIDOCAINE 1% INJ-PF (10 MG/ML) 30 ML SDV INJ ONE (22:11)
[2017-11-28] MEDS ORDERED: AZITHROMYCIN 250 MG TABLET PO ONE (22:11)
[2017-11-28] MEDS ORDERED: CEFTRIAXONE INJ 250 MG VIAL IM ONE (22:11)
--- NOTE | 2017-11-28 22:17 | ER Document Report ---
HPI - HPI Pain Level: 2 Notes: Patient is a 36-year-old male no significant past medical history who presents to the ED complaining of urethral discharge 1 day. Patient states it is a cloudy color and would like treated and tested for STDs. Patient states he was sexually active 2 weeks ago. He is otherwise eating and drinking without difficulties. He is urinating normally and having normal bowel movements. No other concerns or complaints. Denies any headache, fever, neck pain, URI, sore throat, chest pain, palpitations, syncope, cough, shortness of breath, wheeze, dyspnea, abdominal pain, nausea/vomiting/diarrhea, urinary retention, dysuria, hematuria, joint pains, or rash. - ROS Systems Reviewed and Negative: Yes All other systems reviewed and negative Past Medical History - Social History Smoking Status: Never Smoker Family History: Reviewed & Not Pertinent Pulmonary Medical History: Denies: Hx Asthma Renal/ Medical History: Denies: Hx Peritoneal Dialysis - Immunizations Hx Diphtheria, Pertussis, Tetanus Vaccination: Yes Vertical Provider Document - CONSTITUTIONAL Agree With Documented VS: Yes Notes: PHYSICAL EXAMINATION: GENERAL: Well-appearing, well-nourished and in no acute distress. LUNGS: Breath sounds clear to auscultation bilaterally and equal. No wheezes rales or rhonchi. HEART: Regular rate and rhythm without murmurs, rubs, gallops. ABDOMEN: Soft, nontender, nondistended abdomen. No guarding, no rebound. No masses appreciated. Normal bowel sounds present. No CVA tenderness bilaterally. : no obvious lympadenopathy or hernia. No rash, lesions, ulcerations, swelling, erythema, or warmth. No scrotal/penile tenderness. Possible scant urethral discharge noted. Musculoskeletal: FROM to passive/active. Strength 5+/5. Extremities: No cyanosis, clubbing, or edema b/l. Peripheral pulses 2+. Capillary refill less than 3 seconds. NEUROLOGICAL: Normal speech, normal gait. PSYCH: Normal mood, normal affect. SKIN: Warm, Dry, normal turgor, no rashes or lesions noted. - INFECTION CONTROL TRAVEL OUTSIDE OF THE [place] IN LAST 30 DAYS: No Course - Re-evaluation Re-evalutation: 11/28/17 22:14 Patient is an afebrile, well-hydrated, 36-year-old male who presents to the ED with urethral discharge and concern of STD. Vitals are acceptable. PE is otherwise unremarkable. Patient is nontoxic-appearing and has no significant tachycardia, tachypnea, or hypoxia. He is tolerating p.o. without difficulties. Chlamydia/gonorrhea tests are pending. Patient was treated with Zithromax and Rocephin. No other labs or imaging warranted at this time based on H&P. Conservative measures otherwise for symptoms. Recheck with your PCM/ health department this week. Return to the ED with any worsening/concerning symptoms otherwise as reviewed in discharge. Patient is in agreement. - Vital Signs Vital signs: Temp Pulse Resp BP Pulse Ox 98.1 F 64 18 112/67 99 11/28/17 19:45 11/28/17 19:45 11/28/17 19:45 11/28/17 19:45 11/28/17 19:45 Discharge - Discharge Clinical Impression: Urethral discharge in male Condition: Stable Disposition: HOME, SELF-CARE Additional Instructions: Push fluids (i.e. water, cranberry juice) Proper hygenic technique Keep the skin clean Safe sexual practices with condoms everytime Tylenol/ibuprofen as needed Check in with the health department this week for further testing* Your chlamydia/Ghon test are pending and you will be notified if positive results; you may call in 1 day for the results as well Return immediately if symptoms worsen F/u with your PCM in 2-3 days for a recheck Consider consult with a Urologist for ongoing/worsening symptoms. Return to the ED with any development of [place]/fever, trouble with vision, eye redness, worsening pain, urethral discharge, urinary retention, blood in the urine, flank pain, abdominal pain, n/v, Chest Pain, shortness of breath, joint pains, trouble breathing, or any other worsening/concerning symptoms as needed otherwise. [facility] - Follow up in 3-5 days
[2017-11-28 22:20] VITALS: BP 101/71
[2017-11-28 23:10] LABS: CHLAM PCR NOT DETECTED (NOT DETECT); GON PCR NOT DETECTED (NOT DETECT)
== END 2017-11-28 22:40 | disposition home or self-care (01) ==
LOC: ER 19:24
DX: R36.9 Urethral discharge, unspecified (principal)
CPT/HCPCS: 99283; 96372; 87491; 87591; J3490; J0696

== ENCOUNTER 2017-12-01 03:39 | Emergency (ER) | payer SELFPAY ==
[2017-12-01 03:44] VITALS: BP 119/68
[2017-12-01] MEDS ORDERED: LOPERAMIDE HCL 2 MG CAPSULE PO ONE (04:07)
--- NOTE | 2017-12-01 04:08 | ER Document Report ---
ED General - General Mode of Arrival: Ambulatory Information source: Patient TRAVEL OUTSIDE OF THE [place] IN LAST 30 DAYS: No - General Chief Complaint: Loose Stools Stated Complaint: DIARRHEA Time Seen by Provider: 12/01/17 04:02 Notes: Patient is a 36 year old male presenting to the emergency department complaining of diarrhea onset last night, 11/30/2017. Patient states he has had diarrhea 6x since onset and describes it as a brown liquid, with his last bowel movement being approximately 2 hours ago. Patient states he has not taking any medications in attempt to alleviate his symptoms. Patient denies fevers, nausea , vomiting, blood in stool or abdominal cramps. Of significance, patient presented to the ED 3 days ago with concerns of a possible STD due to urethral discharge. Patient had a negative chlamydia and gonorrhea test. 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 denies: Abdominal pain, Nausea, Vomiting Genitourinary: No symptoms reported Male Genitourinary: No symptoms reported Musculoskeletal: No symptoms reported Skin: No symptoms reported Hematologic/Lymphatic: No symptoms reported Neurological/Psychological: No symptoms reported -: Yes All other systems reviewed and negative Physical Exam - General General appearance: Appears well, Alert In distress: None - HEENT Head: Normocephalic, Atraumatic Eyes: Normal Conjunctiva: Normal Extraocular movements intact: Yes Pupils: PERRL Neck: Normal - Respiratory Respiratory status: No respiratory distress Chest status: Nontender Breath sounds: Normal Chest palpation: Normal - Cardiovascular Rhythm: Regular Heart sounds: Normal auscultation Murmur: No Friction rub: No Gallop: None auscultated - Abdominal Inspection: Normal Distension: No distension Bowel sounds: Normal Tenderness: Nontender Organomegaly: No organomegaly - Back Back: Normal - Extremities General upper extremity: Normal ROM General lower extremity: Normal ROM - Neurological Neuro grossly intact: Yes Cognition: Normal Orientation: AAOx4 [place] Coma Scale Eye Opening: Spontaneous [place] Coma Scale Verbal: Oriented [place] Coma Scale Motor: Obeys Commands [place] Coma Scale Total: 15 Speech: Normal - Psychological Associated symptoms: Normal affect, Normal mood - Skin Skin Temperature: Warm Skin Moisture: Dry Skin Color: Normal - Vital signs Vitals: Temp Pulse Resp BP Pulse Ox 97.6 F 60 18 119/68 98 12/01/17 03:43 12/01/17 03:43 12/01/17 03:43 12/01/17 03:43 12/01/17 03:43 - Vital Signs Vital signs: Temp Pulse Resp BP Pulse Ox 97.6 F 60 18 119/68 98 12/01/17 03:43 12/01/17 03:43 12/01/17 03:43 12/01/17 03:43 12/01/17 03:43 Discharge - Discharge Clinical Impression: Diarrhea Qualifiers: Diarrhea type: unspecified type Qualified Code(s): R19.7 - Diarrhea, unspecified Additional Instructions: Diarrhea Diarrhea means frequent, watery stools. There are many causes. Any problem that keeps the intestinal tract from absorbing water from the stool can lead to diarrhea. A sudden new diarrhea problem is usually caused by a virus, food sensitivity, toxic bacteria, or drugs. In this case, we expect the problem to go away soon. Testing is done only if you seem seriously ill from the diarrhea. If you have chronic diarrhea, or diarrhea that keeps coming back, we need to find out why. Chronic diarrhea can be due to inflammation of the bowels such as Crohn's disease or ulcerative colitis, food sensitivity such as intolerance to lactose or wheat protein, irritable bowel syndrome, and other problems. If your diarrhea is a significant problem but it's not clear why you have it, we' ll refer you to a specialist for further testing. During an episode of diarrhea, drink small amounts (two to six ounces) of clear liquids (soft drinks, sport drinks, herb teas, broth, etc). Take fluids frequently to prevent dehydration. It's usually not a problem to take mild anti- diarrhea medication such as Kaopectate or Pepto-Bismol. As the diarrhea eases, advance to small amounts of bland food (mashed potato, toast) for 24 hours. Call the physician if blood appears in your vomit or stool, if vomiting lasts longer than 24 hours, if the abdominal pain worsens or becomes localized to one area, if you develop high fever, or if you become lightheaded and weak. Take clear liquids today. Take Imodium-AD, Pepto-Bismol or Kaopectate to help stop the diarrhea. Collect a stool specimen in the cup provided, and bring it to the lab for culturing the diarrhea. Return if not improving. Forms: Follow-Up Laboratory Testing, Return to Work Scribe Attestation: 12/01/17 04:09 I personally performed the services described in the documentation, reviewed and edited the documentation which was dictated to the scribe in my presence, and it accurately records my words and actions. (THOR MENDEZ)
== END 2017-12-01 04:18 | disposition home or self-care (01) ==
LOC: ER 03:39
DX: R19.7 Diarrhea, unspecified (principal); Z88.0 Allergy status to penicillin
CPT/HCPCS: 99284

== ENCOUNTER 2018-01-03 04:38 | Emergency (ER) | payer SELFPAY ==
--- NOTE | 2018-01-03 06:17 | ER Document Report ---
ED General - General Chief Complaint: Abdominal Pain Stated Complaint: FREQUENT URINATION Time Seen by Provider: 01/03/18 06:07 Notes: 37-year-old male states that his sexual partner was diagnosed with chlamydia 2 days ago. States he has some mild burning with urination. States that this is happened on multiple occasions because he does not practice safe sex. Denies any other symptoms at this time other than some mild dysuria.. TRAVEL OUTSIDE OF THE [place] IN LAST 30 DAYS: No - HPI Onset: Last week Onset/Duration: Gradual - Related Data Allergies/Adverse Reactions: Penicillins Allergy (Unknown, Verified 11/29/17 01:13) Past Medical History - General Information source: Patient - Social History Smoking Status: Never Smoker Frequency of alcohol use: None Drug Abuse: None Lives with: Alone Family History: Reviewed & Not Pertinent Patient has suicidal ideation: No Patient has homicidal ideation: No Pulmonary Medical History: Denies: Hx Asthma Renal/ Medical History: Denies: Hx Peritoneal Dialysis - Immunizations Hx Diphtheria, Pertussis, Tetanus Vaccination: Yes Review of Systems - Review of Systems Constitutional: denies: Fever, Malaise, Weakness EENT: denies: Eye pain, Eye discharge, Mouth pain, Mouth swelling Cardiovascular: denies: Chest pain, Palpitations, Heart racing Respiratory: denies: Cough, Hurts to breathe, Short of breath, Wheezing Gastrointestinal: denies: Abdominal pain, Diarrhea, Nausea, Vomiting Genitourinary: Burning, Dysuria. denies: Discharge, Frequency, Flank pain Skin: denies: Dryness, Lesions, Lumps, Rash Neurological/Psychological: denies: Confusion, Weakness Physical Exam - Vital signs Vitals: Temp Pulse Resp BP Pulse Ox 98.1 F 56 L 16 115/67 100 01/03/18 04:46 01/03/18 04:46 01/03/18 04:46 01/03/18 04:46 01/03/18 04:46 Interpretation: Normal - General General appearance: Appears well, Alert - Respiratory Respiratory status: No respiratory distress Chest status: Nontender Breath sounds: Normal Chest palpation: Normal - Cardiovascular Rhythm: Regular Heart sounds: Normal auscultation Murmur: No - Genitourinary Inspection: Normal Tenderness: Nontender Cremasteric reflex: Normal Scrotum: Normal - Skin Skin Temperature: Warm Skin Moisture: Dry Skin Color: Normal Course - Vital Signs Vital signs: Temp Pulse Resp BP Pulse Ox 98.1 F 56 L 16 115/67 100 01/03/18 04:46 01/03/18 04:46 01/03/18 04:46 01/03/18 04:46 01/03/18 04:46 - Laboratory Laboratory results interpreted by me: 01/03/18 06:10 Urine Ascorbic Acid 20 H Discharge - Discharge Clinical Impression: Urethritis Condition: Good Disposition: HOME, SELF-CARE Instructions: Urethritis ([facility]) Forms: Return to Work
[2018-01-03 06:24] LABS: APPEARANCE,URINE CLEAR; BILIRUBIN,URINE NEGATIVE (NEGATIVE); COLOR,URINE YELLOW; GLUCOSE, URINE NEGATIVE (NEGATIVE); KETONES,URINE NEGATIVE (NEGATIVE); LEUKOCYTE ESTERASE,URINE NEGATIVE (NEGATIVE); NITRITE,URINE NEGATIVE (NEGATIVE); PROTEIN,URINE NEGATIVE (NEGATIVE); URINE SPECIFIC GRAVITY 1.016; UROBILINOGEN,URINE NEGATIVE mg/dL (<2.0)
[2018-01-03] MEDS ORDERED: CEFTRIAXONE INJ 1000 MG VIAL IM ONE (06:47)
[2018-01-03] MEDS ORDERED: AZITHROMYCIN 1 GM SUSP PACKET PO ONE (06:48)
[2018-01-03 07:26] VITALS: BP 100/67
== END 2018-01-03 07:15 | disposition home or self-care (01) ==
LOC: ER 04:38
DX: N34.2 Other urethritis (principal); R30.0 Dysuria; Z20.2 Contact with and (suspected) exposure to infections with a predominantly sexual mode of transmission; Z88.0 Allergy status to penicillin
CPT/HCPCS: 99283; 96372; 81001; Q0144; J0696

== ENCOUNTER 2018-02-21 09:50 | Emergency (ER) | payer SELFPAY ==
[2018-02-21 09:58] VITALS: BP 109/73
--- NOTE | 2018-02-21 10:09 | ER Document Report ---
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 Tetanus is current. Associated Symptoms: None Exacerbated by: Movement Relieved by: Denies Similar symptoms previously: No Recently seen / treated by doctor: No - ROS ROS below otherwise negative: Yes Systems Reviewed and Negative: Yes All other systems reviewed and negative Past Medical History - General Information source: Patient - Social History Smoking Status: Unknown if Ever Smoked Lives with: Family Family History: Reviewed & Not Pertinent - Medical History Medical History: Negative Pulmonary Medical History: Denies: Hx Asthma Renal/ Medical History: Denies: Hx Peritoneal Dialysis Surgical Hx: Negative - Immunizations Hx Diphtheria, Pertussis, Tetanus Vaccination: Yes Vertical Provider Document - CONSTITUTIONAL Agree With Documented VS: Yes Exam Limitations: No Limitations - INFECTION CONTROL TRAVEL OUTSIDE OF THE [place] IN LAST 30 DAYS: No - MUSCULOSKELETAL/EXTREMETIES Musculoskeletal/Extremeties: MAEW, FROM, Tender - Superficial abrasion dorsal left fifth toe without infection or lymphangitis - NEURO Level of Consciousness: Awake Motor/Sensory: No Motor Deficit, No Sensory Deficit Course - Re-evaluation Re-evalutation: 02/21/18 10:39 Prelim x-ray is negative 02/21/18 20:10 Final x-ray report is negative - Vital Signs Vital signs: Temp Pulse Resp BP Pulse Ox 97.4 F 68 16 109/73 100 02/21/18 09:57 02/21/18 09:57 02/21/18 09:57 02/21/18 09:57 02/21/18 09:57 Discharge - Discharge Clinical Impression: left 5th toe contusion and abrasion Condition: Good Disposition: HOME, SELF-CARE Instructions: Abrasions ([facility]), Acetaminophen, Contusion ([facility]), Ibuprofen ( General) ([facility]) Additional Instructions: Keep clean and dry Watch for signs of infection which can include increased pain, redness, pus, swelling. Return to the emergency room any concerns Referrals: LOCALMD,NO [NO LOCAL MD] - Follow up as needed
[2018-02-21] MEDS ORDERED: ACETAMINOPHEN 325 MG TABLET PO ONE (10:32)
[2018-02-21] MEDS ORDERED: IBUPROFEN 600 MG TABLET PO ONE (10:32)
--- NOTE | 2018-02-21 11:04 | RADIOLOGY REPORT (SQ) ---
EXAM DESCRIPTION: FOOT LEFT COMPLETE COMPLETED DATE/TIME: 02/21/2018 10:25 am REASON FOR STUDY: Fifth toe injury COMPARISON: None. NUMBER OF VIEWS: Three views. TECHNIQUE: AP, lateral and oblique radiographic images acquired of the left foot. LIMITATIONS: None. FINDINGS: MINERALIZATION: Normal. BONES: No acute fracture or dislocation. No worrisome bone lesions. JOINTS: No effusions. SOFT TISSUES: No soft tissue swelling. No foreign body. OTHER: No other significant finding. IMPRESSION: NEGATIVE STUDY OF THE LEFT FOOT. NO RADIOGRAPHIC EVIDENCE OF ACUTE INJURY. TECHNICAL DOCUMENTATION: JOB ID: [id number] [employer]- All Rights Reserved Reading location - IP/workstation name: [email or web address]
== END 2018-02-21 10:43 | disposition home or self-care (01) ==
LOC: ER 09:50
DX: S90.122A Contusion of left lesser toe(s) without damage to nail, initial encounter (principal); W22.8XXA Striking against or struck by other objects, initial encounter
CPT/HCPCS: 99283

== ENCOUNTER 2018-08-11 21:52 | Emergency (ER) | payer SELFPAY ==
[2018-08-11 22:09] VITALS: BP 111/65
[2018-08-11] MEDS ORDERED: ONDANSETRON 4 MG TAB.RAPDIS PO ONE (22:18)
[2018-08-11] MEDS ORDERED: METRONIDAZOLE 500 MG TABLET PO ONE (22:18)
[2018-08-11] MEDS ORDERED: CEFTRIAXONE INJ 250 MG VIAL IM ONE (22:18)
[2018-08-11] MEDS ORDERED: AZITHROMYCIN 250 MG TABLET PO ONE (22:18)
[2018-08-11] MEDS ORDERED: LIDOCAINE 1% INJ-PF (10 MG/ML) 30 ML SDV INJ ONE (22:18)
--- NOTE | 2018-08-11 22:22 | ER Document Report ---
HPI - HPI Patient complains to provider of: penile discharge Time Seen by Provider: 08/11/18 22:12 Pain Level: Denies Context: Patient is a 37-year-old male that comes to the emergency department for chief complaint of penile discharge and dysuria for the past 2 days. He states that he had chlamydia one time many years ago and he is having the same symptoms. He did have a recent sexual exposure. He denies rash, fever, abdominal pain, or any other complaints. He takes no daily medications, denies any medical history otherwise. Past Medical History - General Information source: Patient - Social History Smoking Status: Never Smoker Drug Abuse: None Lives with: Family Family History: Reviewed & Not Pertinent - Medical History Medical History: Negative Pulmonary Medical History: Denies: Hx Asthma Renal/ Medical History: Denies: Hx Peritoneal Dialysis Surgical Hx: Negative - Immunizations Hx Diphtheria, Pertussis, Tetanus Vaccination: Yes Vertical Provider Document - CONSTITUTIONAL General Appearance: WD/WN, No Apparent Distress - INFECTION CONTROL TRAVEL OUTSIDE OF THE [place] IN LAST 30 DAYS: No - HEENT HEENT: Atraumatic, Normal ENT Exam, Normocephalic - NECK Neck: Normal Inspection - RESPIRATORY Respiratory: Breath Sounds Normal, No Respiratory Distress - CARDIOVASCULAR Cardiovascular: Regular Rate, Regular Rhythm - GI/ABDOMEN Gastrointestinal: Abdomen Soft, Abdomen Non-Tender - REPRODUCTIVE Male Genitalia: Normal Inspection - No tenderness, swelling, rash, or abnormality noted over the penis, scrotum, inguinal area. No discharge noted.. negative: Abnormal Inspection - BACK Back: Normal Inspection - MUSCULOSKELETAL/EXTREMETIES Musculoskeletal/Extremeties: MAEW, FROM, Non-Tender - NEURO Level of Consciousness: Awake, Alert, Appropriate - DERM Integumentary: Warm, Dry, No Rash Course - Re-evaluation Re-evalutation: Unremarkable physical exam. Patient reporting discharge, dysuria, requesting to be treated for gonorrhea/chlamydia, and Trichomonas after discussion. States she has had exposure. States he had similar symptoms in the past with chlamydia, this was present in the system. Dirty urine was collected, patient was treated with IM Rocephin, azithromycin, and Flagyl. Discussed follow-up and return precautions, discussed recommendations. Patient states understanding and agreement with plan. - Vital Signs Vital signs: Temp Pulse Resp BP Pulse Ox 98.1 F 64 20 111/65 98 08/11/18 22:08 08/11/18 22:08 08/11/18 22:08 08/11/18 22:08 08/11/18 22:08 Discharge - Discharge Clinical Impression: Penile discharge Condition: Stable Disposition: HOME, SELF-CARE Additional Instructions: You have been covered for STD exposures. Do not have intercourse for 1 week, any partner needs to also be treated. Close with primary care. Return for any concerning or worsening symptoms including fever, abdominal pain, rash, or any other concerning symptoms. Referrals: [facility] [Primary Care Provider] - Follow up as needed
[2018-08-12 00:06] LABS: CHLAM PCR NOT DETECTED (NOT DETECT); GON PCR NOT DETECTED (NOT DETECT)
== END 2018-08-11 22:53 | disposition home or self-care (01) ==
LOC: ER 21:52
DX: R36.9 Urethral discharge, unspecified (principal); R30.0 Dysuria; Z20.2 Contact with and (suspected) exposure to infections with a predominantly sexual mode of transmission
CPT/HCPCS: 99283; 96372; 87491; 87591; S0119; J3490; J0696

== ENCOUNTER 2018-10-28 06:50 | Emergency (ER) | payer OTHER ==
[2018-10-28 06:57] VITALS: BP 118/68
[2018-10-28] MEDS ORDERED: CEFTRIAXONE INJ 250 MG VIAL IM ONE (07:24)
[2018-10-28] MEDS ORDERED: AZITHROMYCIN 250 MG TABLET PO ONE (07:24)
[2018-10-28] MEDS ORDERED: LIDOCAINE 1% INJ-PF (10 MG/ML) 30 ML SDV INJ ONE (07:24)
--- NOTE | 2018-10-28 07:24 | ER Document Report ---
HPI - HPI Time Seen by Provider: 10/28/18 07:17 Pain Level: 2 Context: Patient is a 37-year-old male who presents the emergency department with a chief complaint of an STI exposure. His partner was diagnosed with chlamydia and told him that he needs to be treated. He denies any symptoms. He currently takes Flomax for an overactive bladder. Denies any other past medical history. - CONSTITUTIONAL Constitutional: DENIES: Fever, Chills - EENT EENT: DENIES: Sore Throat - NEURO Neurology: DENIES: Headache - CARDIOVASCULAR Cardiovascular: DENIES: Chest pain - RESPIRATORY Respiratory: DENIES: Trouble Breathing, Coughing - GASTROINTESTINAL Gastrointestinal: DENIES: Abdominal Pain, Nausea, Patient vomiting, Diarrhea - URINARY Urinary: DENIES: Dysuria, Urgency, Frequency - MUSCULOSKELETAL Musculoskeletal: DENIES: Extremity pain, Back Pain, Neck Pain, Swelling - DERM Skin Color: Normal Skin Problems: None Past Medical History - Social History Smoking Status: Never Smoker Frequency of alcohol use: None Drug Abuse: None Family History: Reviewed & Not Pertinent Pulmonary Medical History: Denies: Hx Asthma Renal/ Medical History: Denies: Hx Peritoneal Dialysis - Immunizations Hx Diphtheria, Pertussis, Tetanus Vaccination: Yes Vertical Provider Document - CONSTITUTIONAL Agree With Documented VS: Yes Exam Limitations: No Limitations General Appearance: No Apparent Distress - INFECTION CONTROL TRAVEL OUTSIDE OF THE [place] IN LAST 30 DAYS: No - HEENT HEENT: Atraumatic, Normocephalic, PERRLA - NECK Neck: Normal Inspection - RESPIRATORY Respiratory: Breath Sounds Normal, No Respiratory Distress - CARDIOVASCULAR Cardiovascular: Regular Rate, Regular Rhythm Pulses: Normal: Radial - GI/ABDOMEN Gastrointestinal: Abdomen Soft - REPRODUCTIVE Male Genitalia: Normal Inspection - MUSCULOSKELETAL/EXTREMETIES Musculoskeletal/Extremeties: FROM - NEURO Level of Consciousness: Awake, Alert, Appropriate Motor/Sensory: No Motor Deficit, No Sensory Deficit - DERM Integumentary: Warm, Dry Course - Re-evaluation Re-evalutation: 10/28/18 Patient is here for an inquiry on gonorrhea and chlamydia, as his partner was diagnosed with chlamydia. He has chosen to be empirically treated with Rocephin and azithromycin here in the emergency department. Denies any penile discharge. He denies any dysuria. I do not suspect the patient has any kind of inflammatory disease. He is nontoxic in appearance. I do not suspect he is septic. Verbal discharge instructions were given to the patient. They verbalized understanding. They are stable for discharge. - Vital Signs Vital signs: Temp Pulse Resp BP Pulse Ox 97.5 F 62 21 H 118/68 98 10/28/18 06:52 10/28/18 06:52 10/28/18 06:52 10/28/18 06:52 10/28/18 06:52 Discharge - Discharge Clinical Impression: Exposure to chlamydia Condition: Stable Disposition: HOME, SELF-CARE Additional Instructions: You need to use protection every time you have sex. Failure to do so can result in transmission of infections or unintended . You have been treated for an sexually transmitted infection (STI) today. Please return if you develop abdominal pain, fever, persistent vomiting, or any other symptoms that are concerning to you. Referrals: [facility] [NO LOCAL MD] - Follow up as needed
[2018-10-28 09:34] LABS: CHLAM PCR NOT DETECTED (NOT DETECT); GON PCR NOT DETECTED (NOT DETECT)
== END 2018-10-28 07:44 | disposition home or self-care (01) ==
LOC: ER 06:50
DX: Z20.2 Contact with and (suspected) exposure to infections with a predominantly sexual mode of transmission (principal); N32.81 Overactive bladder; Z79.899 Other long term (current) drug therapy
CPT/HCPCS: 99283; 96372; 87491; 87591; J3490; J0696

== ENCOUNTER 2018-10-29 14:55 | Emergency (ER) | payer OTHER ==
--- NOTE | 2018-10-29 16:35 | ER Document Report ---
ED Medical Screen (RME) - General Chief Complaint: Groin Pain Stated Complaint: ABDOMINAL PAIN Time Seen by Provider: 10/29/18 16:26 Mode of Arrival: Ambulatory Information source: Patient TRAVEL OUTSIDE OF THE [place] IN LAST 30 DAYS: No - HPI Patient complains to provider of: HERNIA PAIN Notes: 10/29/18 16:33 Patient here with complaints of right inguinal hernia pain. He states that it seems to be getting larger and is having a. He denies any fever. He denies any nausea vomiting. Exam Large right inguinal hernia on limited triage abdominal exam. Hernia is soft, not able to completely reduce this in triage. Tenderness to palpation. Plan CBC, CMP, lipase, urine, ultrasound. An initial examination was made on the patient as part of the triage process, and it was determined a more comprehensive evaluation was necessary. Initial labs were ordered and patient was transferred to another provider in the ED who assumed care and finished evaluation and plan. - Related Data Allergies/Adverse Reactions: Penicillins Allergy (Unknown, Verified 08/11/18 21:54) Past Medical History - Social History Chew tobacco use (# tins/day): No Frequency of alcohol use: None Drug Abuse: None Pulmonary Medical History: Denies: Hx Asthma Renal/ Medical History: Denies: Hx Peritoneal Dialysis - Immunizations Hx Diphtheria, Pertussis, Tetanus Vaccination: Yes Physical Exam - Vital signs Vitals: Temp Pulse Resp BP Pulse Ox 97.9 F 64 16 110/64 100 10/29/18 15:24 10/29/18 15:24 10/29/18 15:24 10/29/18 15:24 10/29/18 15:24 Course - Vital Signs Vital signs: Temp Pulse Resp BP Pulse Ox 97.9 F 64 16 110/64 100 10/29/18 15:24 10/29/18 15:24 10/29/18 15:24 10/29/18 15:24 10/29/18 15:24
[2018-10-29 18:02] LABS: AMORPHOUS SEDIMENT,URINE TRACE /HPF; APPEARANCE,URINE CLOUDY; BILIRUBIN,URINE NEGATIVE (NEGATIVE); COLOR,URINE YELLOW; GLUCOSE, URINE NEGATIVE (NEGATIVE); KETONES,URINE NEGATIVE (NEGATIVE); LEUKOCYTE ESTERASE,URINE NEGATIVE (NEGATIVE); NITRITE,URINE NEGATIVE (NEGATIVE); PROTEIN,URINE NEGATIVE (NEGATIVE); URINE SPECIFIC GRAVITY 1.027
[2018-10-29 18:21] LABS: ALANINE AMINOTRANSFERASE 23 U/L (21-72); ALBUMIN 4.3 g/dL (3.5-5.0); ALKALINE PHOSPHATASE 76 U/L (38-126); ANION GAP 6 (5-19); ASPARTATE AMINO TRANSFERASE 25 U/L (17-59); BILIRUBIN,DIRECT 0.3 mg/dL (0.0-0.4); BILIRUBIN,TOTAL 0.4 mg/dL (0.2-1.3); BLOOD UREA NITROGEN 14 mg/dL (7-20); CALCIUM 9.8 mg/dL (8.4-10.2); CARBON DIOXIDE 31 mmol/L (22-30); CHLORIDE 105 mmol/L (98-107); GLUCOSE 77 mg/dL (75-110); LIPASE 20.3 U/L (23-300); POTASSIUM 4.3 mmol/L (3.6-5.0); SODIUM 142.4 mmol/L (137-145); TOTAL PROTEIN 7.8 g/dL (6.3-8.2)
--- NOTE | 2018-10-29 19:12 | RADIOLOGY REPORT (SQ) ---
EXAM DESCRIPTION: U/S NON-OB PELVIS W/O DOP COMPLETED DATE/TIME: 10/29/2018 6:30 pm REASON FOR STUDY: Right inguinal hernia COMPARISON: 03/22/2016 TECHNIQUE: Dynamic and static grayscale images acquired of the pelvis via transabdominal approach an d recorded on PACS. Additional selected color Doppler and spectral images recorded. LIMITATIONS: None. FINDINGS: Known right inguinal hernia. Imaging was performed in the area of concern. There appears to be loop of bowel within the hernia. This is only seen with the patient standing. Left inguinal nodes are seen. IMPRESSION: Right inguinal hernia. Left inguinal lymph nodes are nonspecific. TECHNICAL DOCUMENTATION: JOB ID: [id number] [employer]- All Rights Reserved Rev-10/27 Reading location - IP/workstation name: [email or web address]
--- NOTE | 2018-10-29 19:42 | ER Document Report ---
Addendum entered and electronically signed by YASMEEN FERNANDES NP 10/29/18 19:57: Discharge - Discharge Clinical Impression: Inguinal hernia Qualifiers: Obstruction and gangrene presence: without obstruction or gangrene Laterality: unilateral Recurrence: recurrent Qualified Code(s): K40.91 - Unilateral inguinal hernia, without obstruction or gangrene, recurrent Condition: Stable Disposition: HOME, SELF-CARE Instructions: Hernia ([facility]) Additional Instructions: Take medication as prescribed. Follow-up with surgery at the next available appointment. Follow-up sooner for worsening pain, fever, swelling, worsening pain, persistent vomiting, or for any further concerns. Prescriptions: Naproxen [Naprosyn] 500 mg PO BID #20 tablet Forms: Smoking Cessation Education Referrals: [facility] [Provider Group] - Follow up as needed GAY LANGFORD MD [WESLEY PADGETT] - Follow up as needed Original Note: ED GI/ - General Chief Complaint: Groin Pain Stated Complaint: ABDOMINAL PAIN Time Seen by Provider: 10/29/18 16:26 Mode of Arrival: Ambulatory Information source: Patient TRAVEL OUTSIDE OF THE [place] IN LAST 30 DAYS: No - HPI Patient complains to provider of: Other - Right inguinal hernia Notes: 10/29/18 19:37 Patient here with complaints of right inguinal hernia. The patient has a known inguinal hernia but states that it seems to be getting more painful and larger. He was to have it evaluated. No new injury. No fever. No nausea, vomiting, diarrhea. No chest pain or shortness of breath. No dysuria or hematuria. No testicular pain or swelling at this time. No numbness, tingling, weakness. Pain is intermittent, mild, nothing in particular seems to make it better or worse. No other complaints at this time. - Related Data Allergies/Adverse Reactions: Penicillins Allergy (Unknown, Verified 08/11/18 21:54) Past Medical History - General Information source: Patient - Social History Smoking Status: Never Smoker Chew tobacco use (# tins/day): No Frequency of alcohol use: None Drug Abuse: None Family History: Reviewed & Not Pertinent Patient has suicidal ideation: No Patient has homicidal ideation: No Pulmonary Medical History: Denies: Hx Asthma Renal/ Medical History: Denies: Hx Peritoneal Dialysis - Immunizations Hx Diphtheria, Pertussis, Tetanus Vaccination: Yes Review of Systems - Review of Systems -: Yes All other systems reviewed and negative Physical Exam - Vital signs Vitals: Temp Pulse Resp BP Pulse Ox 97.9 F 64 16 110/64 100 10/29/18 15:24 10/29/18 15:24 10/29/18 15:24 10/29/18 15:24 10/29/18 15:24 - Notes Notes: GENERAL: alert, cooperative, nontoxic, no distress. HEAD: normocephalic, atraumatic EYES: conjunctiva pink without discharge, no external redness or swelling. EARS: no external swelling, no external redness NOSE: atraumatic, no external swelling MOUTH/THROAT: mucous membranes moist and pink, posterior pharynx without erythema, swelling, exudate. No trismus or drooling. NECK: soft, supple, full range of motion, no meningismus. CHEST: no distress, lungs clear and equal throughout. No wheezing, rales, rhonchi. CARDIAC: regular rate and rhythm, no murmur, normal capillary refill, normal pulses. No peripheral edema noted. ABDOMEN: Soft, nontender. No rebound tenderness or guarding. Patient with a large soft inguinal hernia on the right. Mild tenderness to palpation. No signs of incarceration. BACK: full range of motion, no CVA tenderness. EXTREMITIES: full range of motion of all extremities. No redness, no swelling. NEURO: alert and oriented x 3, no focal deficits, full range of motion of all extremities. PYSCH: appropriate mood, affect. Patient is cooperative. SKIN: pink, warm, dry, no rash. Course - Re-evaluation Re-evalutation: 10/29/18 19:38 Patient is nontoxic-appearing with stable vitals. Patient here with complaints of right inguinal hernia which she has had for quite some time. States that seems to be getting larger and wanted to have it evaluated. On exam it soft mildly tender to palpation there is no obvious signs of incarceration. Ultrasound shows a loop of bowel that is only seen when he is standing. When lying flat hernia seems to reduce itself. He has had no vomiting or fevers. No signs of other systemic illness. Apparently his CBC clotted he did not want to have this redrawn as he was stuck a few times and is a tough stick. Chemistries are unremarkable. Do believe this is reasonable since he is afebrile and the ultrasound shows no significant abnormality. This point I think the patient can safely be discharged home with a prescription for Naprosyn and a referral to surgery regarding his inguinal hernia with instructions to follow-up for worsening pain, fever, persistent vomiting, or for any further concerns. The patient's emergency department workup and current diagnosis were explained to the patient and or family. Follow-up instructions were provided. Medications if prescribed were discussed. Instructions for when to return to the emergency department including specific worrisome symptoms were discussed with the patient and/or family. - Vital Signs Vital signs: Temp Pulse Resp BP Pulse Ox 97.9 F 64 16 110/64 100 10/29/18 15:24 10/29/18 15:24 10/29/18 15:24 10/29/18 15:24 10/29/18 15:24 - Laboratory Result Diagrams: 10/29/18 17:11 10/29/18 17:11 Laboratory results interpreted by me: 10/29/18 10/29/18 17:11 17:11 Carbon Dioxide 31 H Lipase 20.3 L Urine Urobilinogen 2.0 H Urine Ascorbic Acid 40 H - Diagnostic Test Radiology reviewed: Image reviewed, Reports reviewed - Inguinal hernia with no signs of incarceration Discharge - Discharge Clinical Impression: Inguinal hernia Qualifiers: Obstruction and gangrene presence: without obstruction or gangrene Laterality: bilateral Recurrence: recurrent Qualified Code(s): K40.21 - Bilateral inguinal hernia, without obstruction or gangrene, recurrent Condition: Stable Disposition: HOME, SELF-CARE Instructions: Hernia ([facility]) Additional Instructions: Take medication as prescribed. Follow-up with surgery at the next available appointment. Follow-up sooner for worsening pain, fever, swelling, worsening p ain, persistent vomiting, or for any further concerns. Prescriptions: Naproxen [Naprosyn] 500 mg PO BID #20 tablet Forms: Smoking Cessation Education Referrals: GAY LANGFORD MD [WESLEY PADGETT] - Follow up as needed [facility] [Provider Group] - Follow up as needed
[2018-10-29 19:57] VITALS: BP 135/85
== END 2018-10-29 19:58 | disposition home or self-care (01) ==
LOC: ER 14:55
DX: K40.91 Unilateral inguinal hernia, without obstruction or gangrene, recurrent (principal); R10.30 Lower abdominal pain, unspecified
CPT/HCPCS: 76856; 80053; 81001; 83690; 99284

== ENCOUNTER 2019-02-15 20:39 | Emergency (ER) | payer OTHER ==
[2019-02-15] MEDS ORDERED: CEFTRIAXONE INJ 250 MG VIAL IM ONE (23:09)
[2019-02-15] MEDS ORDERED: LIDOCAINE 1% INJ-PF (10 MG/ML) 30 ML SDV NEB ONE (23:09)
--- NOTE | 2019-02-15 23:09 | ER Document Report ---
HPI - HPI Patient complains to provider of: penile discharge Time Seen by Provider: 02/15/19 23:03 Onset: Yesterday Onset/Duration: Gradual, Persistent Severity: Mild Pain Level: 2 Context: 38 Yr old male pt with the listed pmh, here for penile dc for x 2 days. hx of this before when he had chlamydia in the past. he underwent tx and has been asymptomatic since. endorses concern for possible std again and would like prophylactic tx for gc/chlam. mild dysuria. no other uti sx. no trauma or injury. no hx of diabetes or asthma. normal bms. no testicular pain/swelling, penile dc/rash/lesions. denies swelling or hx of hernias. no abd surgeries unless otherwise noted. no recent abx or steroids. hasn't taken anything for sx or sought care until now. no abd pain. no uri sx. no rash. no anuria. no hx of renal stones. no back/flank pain/fevers. no recent illness. denies changes in color or caliber of stool. no other associated sx. Relieved by: Remaining still Similar symptoms previously: Yes Recently seen / treated by doctor: No - ROS Systems Reviewed and Negative: Yes All other systems reviewed and negative - to include 10 systems unless mentioned in the hpi Past Medical History - General Information source: Patient - Social History Smoking Status: Unknown if Ever Smoked Frequency of alcohol use: None Drug Abuse: None Family History: Reviewed & Not Pertinent Patient has suicidal ideation: No Patient has homicidal ideation: No - Medical History Medical History: Negative Pulmonary Medical History: Denies: Hx Asthma Renal/ Medical History: Denies: Hx Peritoneal Dialysis Surgical Hx: Negative - Immunizations Immunizations up to date: Yes Vertical Provider Document - CONSTITUTIONAL Agree With Documented VS: Yes Exam Limitations: No Limitations General Appearance: No Apparent Distress Notes: >>>> PHYSICAL_EXAM: GENERAL_APPEARANCE: well_nourished, alert, cooperative, no_acute_distress, no obvious_discomfort. Pleasant, young black male, smiling, speaking in full sentences, easily sitting up, in no sign of pain or resp distress, nontoxic, no one is with him VITALS: reviewed, see vital signs table. HEAD: normocephalic. atraumatic. no adkins signs. no raccoon eyes. EYES: PERRL, EOMI, (-)scleral icterus. NOSE: no_nasal_discharge. MOUTH: (-)decreased moisture. THROAT: no_tonsilar_inflammation/hypertrophy/exudate. no lymphadenopathy NECK: supple, no_neck_tenderness, full rom. full strength. no meningeal signs. BACK: no_back_tenderness. CHEST_WALL: no_chest_tenderness. LUNGS: no_wheezing, (-)accessory muscle use, good air exchange bilateral. HEART: normal_rate, normal_rhythm, ABDOMEN: normal_BS, soft, abdomen-diffuse, non-tender, (-)guarding, (- )rebound, no distension or peritoneal signs. neg murphys. neg mcburneys. no cva tenderness. no grossly visible or palpable abd hernias GENITALS: deferred by pt RECTAL: deferred EXTREMITIES: strength 5/5 in all_extremities, good pulses in all_extremities, no_edema, no_swelling\tenderness. full rom. normal gait. brisk cap refill. 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 SKIN: warm, dry, good_color, no _rash. no grossly visible overlying skin changes to suggest trauma unless otherwise noted. NEURO: motor_intact, sensory_intact. MENTAL_STATUS: normal_affect, speech_clear, oriented_X_3, responds_appropriately to questions. - INFECTION CONTROL TRAVEL OUTSIDE OF THE [place] IN LAST 30 DAYS: No Course - Re-evaluation Re-evalutation: 02/15/19 23:19 Pt here for penile dc x 2 days and concern for possible chlamydia again as he has had it before remotely and states it feels the same. no testicular pain/swelling/hernia concerns per pt. no fevers, abd pain, back pain, and normal bms. he has no abd ttp on exam. pt deferred genetalia exam. ua unremarkable. ucx and gc/chlam pending at time of dx. advised we will call with his results once they return. will go ahead and prophylactically tx for gc/chlam per pts request and concern of exposure to these with rocephin and azithro. advised sx care. Advised to follow-up with health department for any further desired STD testing. Condom use for safe sex. Advised no intercourse for atleast week after completion of antibiotics and no intercourse if pt has any symptoms. Advised to have pt's partner tested and treated before engaging in any intercourse. advised to f/u with pcp/health dept/urology in 1-2 days. return for any worsening symptoms. vss. well appearing. satting well on ra. neurononfocal. pt understands and agrees to plan. On reexam, pt improved with tx listed. remained stable. nontoxic. well appearing. pain controlled. tolerating po. requesting to go home. serial abd exams remain benign Documentation achieved through voice recording which may lead to some occasional accidental typographical errors. Extensive efforts have been made to proof read documentation to make sure these are the least as possible. Category Date Time Status CHLAM SOFY PCR URINE INHOUSE [MO] Stat Lab 02/15/19 20:50 Received UA [URINALYSIS] [URIN] Stat Lab 02/15/19 20:50 Received URINE CULTURE [MC] Stat Lab 02/15/19 20:50 Received Azithromycin [Zithromax 250 mg Tablet] Med 02/15/19 23:10 Discontinued 1,000 mg PO NOW ONE Ceftriaxone Sodium [Rocephin Inj 250 mg Vial] Med 02/15/19 23:09 Discontinued 250 mg IM NOW ONE Lidocaine HCl/Pf [Xylocaine 1% Inj-Pf (10 mg/ml) 30 ml Med 02/15/19 23:09 Discontinued Sdv] 3 ml NEB NOW ONE - Vital Signs Vital signs: Temp Pulse Resp BP Pulse Ox 98.0 F 71 16 112/76 99 02/15/19 20:49 02/15/19 20:49 02/15/19 20:49 02/15/19 20:49 02/15/19 20:49 Temp Pulse Resp BP Pulse Ox 02/15/19 23:37 97.9 F 64 16 117/67 100 02/15/19 20:49 98.0 F 71 16 112/76 99 - Laboratory Laboratory results interpreted by me: Labs- Entire Visit 02/15/19 02/15/19 20:50 20:50 Urine Color YELLOW Urine Appearance CLEAR Urine pH 7.0 Ur Specific Anderson 1.010 Urine Protein NEGATIVE Urine Glucose (UA) NEGATIVE Urine Ketones NEGATIVE Urine Blood NEGATIVE Urine Nitrite NEGATIVE Urine Bilirubin NEGATIVE Urine Urobilinogen NEGATIVE Ur Leukocyte Esterase NEGATIVE Urine WBC (Auto) 2 Urine Mucus (Auto) RARE U Trichomonas (Auto) Urine Ascorbic Acid NEGATIVE Chlamydia DNA (PCR) NOT DETECTED N.gonorrhoeae DNA (PCR) NOT DETECTED Discharge - Discharge Clinical Impression: Penile discharge, Unspecified prophylactic or treatment measure Condition: Good Disposition: HOME, SELF-CARE Instructions: Chlamydia ([facility]) Additional Instructions: Follow-up with health department for any further desired STD testing in 2-4 days. We will call you with your results once they return. No intercourse for at least a week or if you have any symptoms. Have your partner tested and treated before engaging in any intercourse. Condom use for safe sex. Return for any worsening symptoms. Referrals: [facility] [NO LOCAL MD] - Follow up in 3-5 days
[2019-02-15] MEDS ORDERED: AZITHROMYCIN 250 MG TABLET PO ONE (23:10)
[2019-02-15 23:26] LABS: APPEARANCE,URINE CLEAR; BILIRUBIN,URINE NEGATIVE (NEGATIVE); COLOR,URINE YELLOW; GLUCOSE, URINE NEGATIVE (NEGATIVE); KETONES,URINE NEGATIVE (NEGATIVE); LEUKOCYTE ESTERASE,URINE NEGATIVE (NEGATIVE); NITRITE,URINE NEGATIVE (NEGATIVE); PROTEIN,URINE NEGATIVE (NEGATIVE); UROBILINOGEN,URINE NEGATIVE mg/dL (<2.0)
[2019-02-15 23:40] VITALS: BP 117/67
[2019-02-16 00:41] LABS: CHLAM PCR NOT DETECTED (NOT DETECT)
== END 2019-02-15 23:40 | disposition home or self-care (01) ==
LOC: ER 20:39
DX: R36.9 Urethral discharge, unspecified (principal)
CPT/HCPCS: 87086; 81001; 87491; 87591; J3490; J0696; 96374; 96375; 99283

== ENCOUNTER 2019-07-22 05:50 | Emergency (ER) | payer BC, OTHER ==
[2019-07-22] MEDS ORDERED: NORMAL SALINE 1000 ML 1,000 ML IV ONE (06:24)
[2019-07-22] MEDS ORDERED: ONDANSETRON HCL INJ/PF 4 MG/2 ML SDV IV ONE (06:24)
[2019-07-22] MEDS ORDERED: ONDANSETRON 4 MG TAB.RAPDIS PO ONE (06:27)
[2019-07-22] MEDS ORDERED: LIDOCAINE 2% VISCOUS SOLN 15 ML UDCUP PO ONE (06:28)
[2019-07-22] MEDS ORDERED: MAG HYDROX/AL HYDROX/SIMETH SUSP 30 ML UDCUP PO ONE (06:28)
--- NOTE | 2019-07-22 06:41 | ER Document Report ---
ED General - General Chief Complaint: Abdominal Pain Stated Complaint: ABDOMINAL PAIN Time Seen by Provider: 07/22/19 06:20 TRAVEL OUTSIDE OF THE [place] IN LAST 30 DAYS: No - HPI Notes: Patient is a 38-year-old male who presents emergency department for evaluation of nausea, vomiting, diarrhea. Symptoms began at 3 AM. He states he woke up, felt nauseated, then had multiple episodes of nonbloody, nonbilious emesis. Shortly afterwards he developed diarrhea. He has had some rumbling and bloating type abdominal pain, he is unable to rated on a pain scale for me at this time. He states it waxes and wanes. He is still urinating. On further questioning, the patient states he does not want an IV nor does he want any blood work. - Related Data Allergies/Adverse Reactions: Penicillins Allergy (Unknown, Verified 08/11/18 21:54) Home Medications: flomax 0.4 mg daily Past Medical History - General Information source: Patient - Social History Smoking Status: Never Smoker Chew tobacco use (# tins/day): No Frequency of alcohol use: None Drug Abuse: None Family History: Reviewed & Not Pertinent, DM Patient has suicidal ideation: No Patient has homicidal ideation: No Pulmonary Medical History: Denies: Hx Asthma Renal/ Medical History: Reports: Other - BPH. Denies: Hx Peritoneal Dialysis - Immunizations Immunizations up to date: Yes Hx Diphtheria, Pertussis, Tetanus Vaccination: Yes Review of Systems - Review of Systems Constitutional: No symptoms reported EENT: No symptoms reported Cardiovascular: No symptoms reported Respiratory: No symptoms reported Gastrointestinal: See HPI Genitourinary: No symptoms reported Musculoskeletal: No symptoms reported Skin: No symptoms reported Neurological/Psychological: No symptoms reported Physical Exam - Vital signs Vitals: Temp Pulse Resp BP Pulse Ox 97.3 F 79 17 120/57 L 100 07/22/19 05:59 07/22/19 05:59 07/22/19 05:59 07/22/19 05:59 07/22/19 05:59 - Notes Notes: Vital signs reviewed, please refer to chart. Head is normocephalic, atraumatic. Pupils equal round, reactive to light. Neck is supple without meningismus. Heart is regular rate and rhythm. Lungs are clear to auscultation bilaterally. Abdomen is soft, nontender, hyperactive bowel sounds throughout. Extremities without cyanosis, clubbing. Posterior calves are nontender. Peripheral pulses are equal. Skin is warm and dry. Patient is awake, alert, neurological exam is nonfocal. Course - Re-evaluation Re-evalutation: 07/22/19 06:40 Patient presents to the emergency department for evaluation. He has had vomiting and diarrhea for under 4 hours. His exam is largely unremarkable. Patient refused IV and blood work. He is treated here with Zofran, Maalox, vis cous lidocaine. His abdominal exam is nonsurgical, we will allow him to sip fluids. Awaiting response to treatment. 07/22/19 07:13 Patient feeling improved. He is able to sip some augustus mahin. We will send him home with a Zofran dispense pack and close follow-up. He is told to stick to clear liquids, advance slowly to bland diet. Follow-up with primary care this week, return to the ED with worsening or concerning symptoms of any sort. - Vital Signs Vital signs: Temp Pulse Resp BP Pulse Ox 97.3 F 79 17 120/57 L 100 07/22/19 05:59 07/22/19 05:59 07/22/19 05:59 07/22/19 05:59 07/22/19 05:59 Discharge - Discharge Clinical Impression: Nausea vomiting and diarrhea Condition: Stable Disposition: HOME, SELF-CARE Instructions: Vomiting ([facility]), Diarrhea, Nonspecific ([facility]) Additional Instructions: Clear liquids, advance slowly to bland diet. Zofran as needed for severe nausea. Tylenol or ibuprofen if you develop fever. If you develop worsening or new concerning symptoms of any sort, please return immediately to the emergency department for evaluation.
[2019-07-22] MEDS ORDERED: ONDANSETRON ODT 4 MG TAB (6 TAB/ER DISP) PO PRN (07:13)
[2019-07-22 07:26] VITALS: BP 110/73
== END 2019-07-22 07:26 | disposition home or self-care (01) ==
LOC: ER 05:50
DX: R11.2 Nausea with vomiting, unspecified (principal); R19.7 Diarrhea, unspecified; Z88.0 Allergy status to penicillin
CPT/HCPCS: S0119; J3490

== ENCOUNTER → 2019-08-05 | Outpatient (CLI) | payer OTHER ==
[2019-08-05 15:36] LABS: ABSOLUTE EOSINOPHILS # (AUTO) 0.1 10^3/uL (0.0-0.6); ABSOLUTE LYMPHOCYTES (AUTO) 1.7 10^3/uL (0.5-4.7); ABSOLUTE MONOCYTES (AUTO) 0.3 10^3/uL (0.1-1.4); ABSOLUTE NEUT (AUTO) 1.7 10^3/uL (1.7-8.2); BASOPHILS % (AUTO) 0.5 % (0-2); EOSINOPHILS % (AUTO) 1.8 % (0-6); HEMATOCRIT 44.9 % (37.9-51.0); HEMOGLOBIN 15.7 g/dL (13.5-17.0); LYMPHOCYTES % (AUTO) 44.5 % (13-45); MEAN CORPUSCULAR HEMOGLOBIN 33.1 pg (27.0-33.4); MEAN CORPUSCULAR HGB CONC 34.9 g/dL (32.0-36.0); MEAN CORPUSCULAR VOLUME 95 fl (80-97); PLATELET COUNT 235 10^3/uL (150-450); RED BLOOD COUNT 4.73 10^6/uL (4.35-5.55); SEGMENTED NEUTROPHILS % (AUTO) 45.2 % (42-78); TOTAL CELLS COUNTED % (AUTO) 100 %; WHITE BLOOD COUNT 3.8 10^3/uL (4.0-10.5)
[2019-08-05 15:47] LABS: ALBUMIN 4.5 g/dL (3.5-5.0); ALKALINE PHOSPHATASE 65 U/L (38-126); ANION GAP 9 (5-19); ASPARTATE AMINO TRANSFERASE 29 U/L (17-59); BILIRUBIN,DIRECT 0.3 mg/dL (0.0-0.4); BILIRUBIN,TOTAL 0.6 mg/dL (0.2-1.3); BLOOD UREA NITROGEN 16 mg/dL (7-20); CALCIUM 9.8 mg/dL (8.4-10.2); CARBON DIOXIDE 31 mmol/L (22-30); CHLORIDE 101 mmol/L (98-107); GLUCOSE 95 mg/dL (75-110); POTASSIUM 4.3 mmol/L (3.6-5.0); TOTAL PROTEIN 8.3 g/dL (6.3-8.2)
== END ==
LOC: CCC 14:32
DX: N42.9 Disorder of prostate, unspecified (principal)
CPT/HCPCS: 36415; 80053; 83036; 84443; 85025

== ENCOUNTER 2019-12-14 17:06 | Emergency (ER) | payer BC ==
[2019-12-14 17:14] VITALS: BP 131/72
[2019-12-14 17:40] LABS: APPEARANCE,URINE CLEAR; BILIRUBIN,URINE NEGATIVE (NEGATIVE); COLOR,URINE STRAW; GLUCOSE, URINE NEGATIVE (NEGATIVE); KETONES,URINE NEGATIVE (NEGATIVE); LEUKOCYTE ESTERASE,URINE NEGATIVE (NEGATIVE); NITRITE,URINE NEGATIVE (NEGATIVE); PROTEIN,URINE NEGATIVE (NEGATIVE); URINE SPECIFIC GRAVITY 1.004; UROBILINOGEN,URINE NEGATIVE mg/dL (<2.0)
[2019-12-14] MEDS ORDERED: CEFTRIAXONE INJ 250 MG VIAL IM ONE (18:31)
[2019-12-14] MEDS ORDERED: LIDOCAINE 1% INJ-PF (10 MG/ML) 30 ML SDV INJ ONE (18:31)
[2019-12-14] MEDS ORDERED: AZITHROMYCIN 250 MG TABLET PO ONE (18:31)
--- NOTE | 2019-12-14 18:34 | ER Document Report ---
ED GI/ - General Chief Complaint: STD Exposure Stated Complaint: STD CHECK Time Seen by Provider: 12/14/19 18:31 Primary Care Provider: [facility] [Primary Care Provider] - Follow up as needed Mode of Arrival: Ambulatory Information source: Patient Notes: 38-year-old male presented to ED for treatment of STD. He states his girlfriend told him that she had an STD and he needed to be treated. We did have patient get a urine clean and dirty check for UTI and GC and chlamydia. The urine was negative before patient was discharged patient was treated with Rocephin and azithromycin and then discharged home with instructions to call tomorrow for the results of his GC and chlamydia. TRAVEL OUTSIDE OF THE [place] IN LAST 30 DAYS: No - HPI Patient complains to provider of: Other - No symptoms sexual partner was positive for STD Onset: Other - Couple days ago Quality of pain: No pain Pain Level: Denies Sexual history: Active, Multiple partners, Unprotected intercourse Associated symptoms: Other - Sexual partner has been positive for STD Exacerbated by: Denies Relieved by: Denies Similar symptoms previously: Yes Recently seen / treated by doctor: No - Related Data Allergies/Adverse Reactions: Penicillins Allergy (Unknown, Verified 08/11/18 21:54) Past Medical History - General Information source: Patient - Social History Smoking Status: Never Smoker Frequency of alcohol use: None Drug Abuse: None Lives with: Alone Family History: Reviewed & Not Pertinent, DM Patient has suicidal ideation: No Patient has homicidal ideation: No - Past Medical History Cardiac Medical History: Reports: None Pulmonary Medical History: Reports: None EENT Medical History: Reports: None Neurological Medical History: Reports: None Endocrine Medical History: Reports: None Renal/ Medical History: Reports: None Malignancy Medical History: Reports None GI Medical History: Reports: None Musculoskeletal Medical History: Reports None Skin Medical History: Reports None Psychiatric Medical History: Reports: None Traumatic Medical History: Reports: None Infectious Medical History: Reports: None Surgical Hx: Negative Past Surgical History: Reports: None - Immunizations Immunizations up to date: Yes Hx Diphtheria, Pertussis, Tetanus Vaccination: Yes Review of Systems - Review of Systems Constitutional: No symptoms reported EENT: No symptoms reported Cardiovascular: No symptoms reported Respiratory: No symptoms reported Gastrointestinal: No symptoms reported Genitourinary: No symptoms reported Male Genitourinary: No symptoms reported Musculoskeletal: No symptoms reported Skin: No symptoms reported Hematologic/Lymphatic: No symptoms reported Neurological/Psychological: No symptoms reported Physical Exam - Vital signs Vitals: Temp Pulse Resp BP Pulse Ox 97.6 F 57 L 16 131/72 H 99 12/14/19 17:10 12/14/19 17:10 12/14/19 17:10 12/14/19 17:10 12/14/19 17:10 Interpretation: Normal - General General appearance: Appears well, Alert - HEENT Head: Normocephalic, Atraumatic Eyes: Normal Pupils: PERRL - Respiratory Respiratory status: No respiratory distress Chest status: Nontender Breath sounds: Normal Chest palpation: Normal - Cardiovascular Rhythm: Regular Heart sounds: Normal auscultation Murmur: No - Abdominal Inspection: Normal Distension: No distension Bowel sounds: Normal Tenderness: Nontender Organomegaly: No organomegaly - Back Back: Normal, Nontender - Extremities General upper extremity: Normal inspection, Nontender, Normal color, Normal ROM, Normal temperature General lower extremity: Normal inspection, Nontender, Normal color, Normal ROM, Normal temperature, Normal weight bearing. No: Jony's sign - Neurological Neuro grossly intact: Yes Cognition: Normal Orientation: AAOx4 [place] Coma Scale Eye Opening: Spontaneous [place] Coma Scale Verbal: Oriented [place] Coma Scale Motor: Obeys Commands [place] Coma Scale Total: 15 Speech: Normal Motor strength normal: LUE, RUE, LLE, RLE Sensory: Normal - Psychological Associated symptoms: Normal affect, Normal mood - Skin Skin Temperature: Warm Skin Moisture: Dry Skin Color: Normal Course - Re-evaluation Re-evalutation: 12/14/19 23:35 Patient was seen in the ED for STD testing. He stated that his sexual partner stated she was positive for STD and he needed to come to the emergency room and be tested and treated. Patient was tested for gonorrhea and chlamydia and treated with a azithromycin and Rocephin before the results were back. He was told to call the hospital tomorrow for his test results. Patient verbalized understanding and agreement treatment plan patient was discharged home. - Vital Signs Vital signs: Temp Pulse Resp BP Pulse Ox 97.6 F 57 L 16 131/72 H 99 12/14/19 17:10 12/14/19 17:10 12/14/19 17:10 12/14/19 17:10 12/14/19 17:10 Discharge - Discharge Clinical Impression: STD contact Condition: Stable Disposition: HOME, SELF-CARE Additional Instructions: You stated that your sexual contact was positive for chlamydia. You deny any symptoms at this time. Azithromycin Azithromycin (Zithromax) is a broad spectrum antibiotic in the same class as erythromycin. It can treat a variety of bacterial infections, but is most frequently used for respiratory infections. Azithromycin is extremely long-lasting. It accumulates in body tissues and continues to kill bacteria for many days. In order to improve absorption, Azithromycin should be taken at least one hour before or two hours after a meal. It does not have the same strong tendency to upset the stomach as erythromycin and is usually very well tolerated. Patients who have had a rash or other true allergic reactions to erythromycin should not take this medication. Call if you develop gastrointestinal distress, severe diarrhea, rash, hives, itching, or shortness of breath. Rocephin You have been given an injection of an antibiotic called Rocephin (ceftriaxone). Sometimes the injection must be combined with antibiotic pills. For some infections, such as an uncomplicated ear infection, Rocephin provides all the antibiotic that's needed. The antibiotic will be in your body for about two days. For serious infections, we usually repeat doses of Rocephin daily. Side effects are very unusual following a shot. Women may develop vaginal yeast infections, and babies can get yeast (thrush) in the mouth following the use of antibiotics. Contact your physician if you have symptoms with this medication. Allergy to this antibiotic can result in hives, wheezing, faintness, or itching. If symptoms of allergy occur, call the doctor at once. FOLLOW-UP CARE: If you have been referred to a physician for follow-up care, call the physicians office for an appointment as you were instructed or within the next two days. If you experience worsening or a significant change in your symptoms, notify the physician immediately or return to the Emergency Department at any time for re-evaluation. Forms: Elevated Blood Pressure Referrals: [facility] [Primary Care Provider] - Follow up as needed
[2019-12-14 19:06] LABS: CHLAM PCR NOT DETECTED (NOT DETECT)
== END 2019-12-14 19:22 | disposition home or self-care (01) ==
LOC: ER 17:06
DX: Z20.2 Contact with and (suspected) exposure to infections with a predominantly sexual mode of transmission (principal)
CPT/HCPCS: 99283; 96372; 81001; 87491; 87591; J3490; J0696

== ENCOUNTER 2020-02-20 00:49 | Emergency (ER) | payer BC ==
--- NOTE | 2020-02-20 03:58 | ER Document Report ---
HPI - HPI Time Seen by Provider: 02/20/20 03:23 Pain Level: Denies Context: Patient is a 39-year-old male that comes to the emergency department for chief complaint of COVID-19 exposure. He states he was around his mom for 3 days and she just tested positive for the coronavirus. He states that he also had 2 loose stools today and he became concerned that he was developing symptoms. He denies bloody stools, fever, abdominal pain, chest pain, nausea, vomiting, feve r, chills, body aches, sore throat, or any current symptoms. When asked patient states he is on Bactrim for recent prostatitis and he is completing this. He states his stomach has actually not felt good intermittently ever since he started this. Patient denies any medications otherwise. - CONSTITUTIONAL Constitutional: DENIES: Fever, Chills - REPRODUCTIVE Reproductive: DENIES: : Past Medical History - General Information source: Patient - Social History Smoking Status: Never Smoker Frequency of alcohol use: None Drug Abuse: None Lives with: Family Family History: Reviewed & Not Pertinent, DM Pulmonary Medical History: Denies: Hx Asthma Renal/ Medical History: Denies: Hx Peritoneal Dialysis - Immunizations Immunizations up to date: Yes Hx Diphtheria, Pertussis, Tetanus Vaccination: Yes Vertical Provider Document - CONSTITUTIONAL General Appearance: WD/WN, No Apparent Distress - INFECTION CONTROL TRAVEL OUTSIDE OF THE [place] IN LAST 30 DAYS: No - HEENT HEENT: Atraumatic, Normal ENT Exam, Normocephalic - NECK Neck: Normal Inspection - RESPIRATORY Respiratory: Breath Sounds Normal, No Respiratory Distress, Chest Non-Tender. negative: Wheezing - CARDIOVASCULAR Cardiovascular: Regular Rate, Regular Rhythm. negative: Tachycardia - GI/ABDOMEN Gastrointestinal: Abdomen Soft, Abdomen Non-Tender, Normal Bowel Sounds. negative: Abdomen Tender, Abdominal Guarding - BACK Back: Normal Inspection - MUSCULOSKELETAL/EXTREMETIES Musculoskeletal/Extremeties: MAEW, FROM, Non-Tender - NEURO Level of Consciousness: Awake, Alert, Appropriate Motor/Sensory: No Motor Deficit, No Sensory Deficit - DERM Integumentary: Warm, Dry, No Rash Course - Re-evaluation Re-evalutation: On my evaluation patient states he is only here for COVID-19 testing. Patient has unremarkable vital signs, he is very well-appearing and well dressed, he has no concerning findings on physical exam. COVID-19 testing was provided, discussed precautions, follow-up, return precautions. Patient states understanding and agreement. - Vital Signs Vital signs: Temp Pulse Resp BP Pulse Ox 98.1 F 63 16 119/76 100 02/20/20 01:07 02/20/20 01:07 02/20/20 01:07 02/20/20 01:07 02/20/20 01:07 Discharge - Discharge Clinical Impression: Exposure to COVID-19 virus, Person under investigation for COVID-19 Diarrhea Qualifiers: Diarrhea type: unspecified type Qualified Code(s): R19.7 - Diarrhea, unspecified Condition: Stable Disposition: HOME, SELF-CARE Additional Instructions: You have been tested for COVID-19. You will be contacted with your results, please quarantine while you are waiting for your results. See additional details below. Your diarrhea is more likely because you have been on antibiotics recently, I recommend that you take [id number] probiotics to help with this. Follow- up with primary care for additional management. Return if you worsen including difficulty breathing, chest pain, vomiting, severe abdominal pain, or any other concerning symptoms. As a person under investigation for COVID-19, the [place] Department of Health and Human Services (division on public health) advises you to adhere to the following guidance until your test results are reported to you. If your test result is positive, you will receive additional information from your provider and your local health department at that time. Remain at home until you are cleared by the health provider or public health authorities. Keep a log of visitors to your home, notify any visitors to your home of your isolation status. If you plan to move to a new address or leave the [facility], notify the local health department in your County. Call your Doctor or seek care if you have an urgent medical need. Before seeking medical care, call him to get instructions from the provider before arriving at the medical office, clinic, or hospital. Notify them that you are being tested for the virus (COVID-19) so that arrangements can be made, as necessary, to prevent transmission to others in the healthcare setting. Next, notify the local health department in your county. If a medical emergency arises and you need to call 911, inform the first respo nders that you are being tested for the virus that causes COVID-19. Next, notify the local health department in your county. Forms: Return to Work
[2020-02-20 04:49] VITALS: BP 124/79
== END 2020-02-20 04:48 | disposition home or self-care (01) ==
LOC: ER 00:49
DX: Z20.828 Contact with and (suspected) exposure to other viral communicable diseases (principal); R19.7 Diarrhea, unspecified
CPT/HCPCS: 99282; U0003; C9803; 87635